=== PATIENT | female | born 1960 | race African-American/Black ===

== ENCOUNTER 2017-08-24 16:11 | Emergency (ER) | payer MEDICAID ==
[~2017-08-24] VITALS: Ht 167.6 cm; Wt 127.0 kg
--- NOTE | 2017-08-24 17:02 | Emergency Room Report ---
History of Present Illness General Chief Complaint: Dyspnea/Respdistress Source: Patient, EMS Present Illness HPI 57-year-old female, history of asthma, presenting with shortness of breath for 2 days. Shortness of breath is worse with exertion, no chest pain no palpitations. Complaining of dry cough. No fever no chills. No diarrhea no vomiting and no abdominal pain. States that she does not have an albuterol inhaler at home Allergies: Coded Allergies: METRONIDAZOLE (Verified Allergy, Unknown, 08/24/17) SULFAMETHOXAZOLE (Verified Allergy, Unknown, 08/24/17) TRIMETHOPRIM (Verified Allergy, Unknown, 08/24/17) Patient History Past Medical History: see triage record Past Surgical History: none Pertinent Family History: none Reviewed Nursing Documentation: PMH: Agreed, PSxH: Agreed Nursing Documentation-PMH Hx Hypertension: Yes Hx Asthma: Yes Review of Systems All Other Systems: negative except mentioned in HPI Physical Exam Vital Signs Date Time Temp Pulse Resp B/P (MAP) Pulse Ox O2 Delivery O2 Flow Rate FiO2 08/24/17 16:06 99.0 60 16 165/90 100 Room Air Sp02 EP Interpretation: reviewed, normal General Appearance: normal inspection, well appearing, no apparent distress, alert, GCS 15, non-toxic Head: normocephalic, atraumatic Eyes: bilateral eye normal inspection, bilateral eye PERRL, bilateral eye EOMI ENT: normal ENT inspection, normal pharynx, normal voice, moist mucus membranes Neck: normal inspection, full range of motion, supple Respiratory: normal inspection, lungs clear, normal breath sounds, no respiratory distress, no retraction, no wheezing, speaking full sentences, chest symmetrical Cardiovascular #1: normal inspection, regular rate, rhythm, no edema, normal capillary refill Cardiovascular #2: 2+ radial (R), 2+ radial (L) Gastrointestinal: normal inspection, non tender, soft, non-distended, no guarding Musculoskeletal: normal inspection, back normal, normal range of motion, non- tender Neurologic: normal inspection, alert, oriented x3, responsive, motor strength/ tone normal, sensory intact, normal gait, speech normal Psychiatric: normal inspection, judgement/insight normal, memory normal Skin: normal inspection, normal color, no rash, warm/dry, well hydrated, normal turgor Medical Decision Making Diagnostic Impression: Primary Impression: Dyspnea ER Course 57-year-old female with history of asthma p/w SOB. DDX: Asthma exacerbation, pneumonia, upper respiratory infection/viral syndrome PE is unlikely given other likely diagnoses which is more likely in this patients given clinical scenario and physical examination. Furthermore, there is no history of DVT/PE. PERC negative. No risk factors such as OCPs, prolonged immobilizations, recent surgeries, hypercoagulability. Plan: Labs EKG chest x-ray Patient not wheezing at this time, no meds needed ER Course: CXR reveals no acute infiltrate Patient continues to speak in complete sentences and is not in respiratory distress. Repeat lung auscultation: good air entry with no wheezing Vital signs normal Disposition: Patient will be discharged to home Strict precautions are discussed with patient on when to emergently return to the ED including: persistent or worsening SOB, chest pain, fever, chills, which could indicate severe illness. Patient verbalized understanding. Patient is to follow up with her/his PMD within 5 days. Patient agrees with plan. Please note that this Emergency Department Report was dictated using [employer] materials handling plant operator technology software, occasionally this can lead to erroneous entry secondary to interpretation by the dictation equipment. EKG Diagnostic Results EP Interpretation: Yes Rate: normal Rhythm: NSR ST Segments: No acute changes ASA given to patient: No Rhythm Strip EP Interpretation: Yes Rate: 70 Rhythm: NSR, no PVCs, no ectopy Chest X-ray CXR: Ordered: Yes 1 view Indication: SOB EP interpretation: Yes Interpretation: No consolidation, no effusion, no PTX, no acute cardiopulmonary disease Impression: No acute disease Electronically signed by Dom Kowalski MD Laboratory Tests Test 08/24/17 17:20 White Blood Count 10.6 K/UL (4.8-10.8) Red Blood Count 5.30 M/UL (4.20-5.40) Hemoglobin 13.7 G/DL (12.0-16.0) Hematocrit 43.4 % (37.0-47.0) Mean Corpuscular Volume 82 FL (80-99) Mean Corpuscular Hemoglobin 25.8 PG (27.0-31.0) L Mean Corpuscular Hemoglobin Concent 31.6 G/DL (32.0-36.0) L Red Cell Distribution Width 13.5 % (11.6-14.8) Platelet Count 372 K/UL (150-450) Mean Platelet Volume 7.7 FL (6.5-10.1) Neutrophils (%) (Auto) 53.2 % (45.0-75.0) Lymphocytes (%) (Auto) 38.2 % (20.0-45.0) Monocytes (%) (Auto) 6.6 % (1.0-10.0) Eosinophils (%) (Auto) 0.8 % (0.0-3.0) Basophils (%) (Auto) 1.1 % (0.0-2.0) Sodium Level 139 MMOL/L (136-145) Potassium Level 3.5 MMOL/L (3.5-5.1) Chloride Level 104 MMOL/L (98-107) Carbon Dioxide Level 28 MMOL/L (21-32) Anion Gap 7 mmol/L (5-15) Blood Urea Nitrogen 10 mg/dL (7-18) Creatinine 0.9 MG/DL (0.55-1.30) Estimate Glomerular Filtration Rate > 60 mL/min (>60) Glucose Level 83 MG/DL (74-106) Calcium Level 9.0 MG/DL (8.5-10.1) Total Bilirubin 0.2 MG/DL (0.2-1.0) Aspartate Amino Transferase (AST) 25 U/L (15-37) Alanine Aminotransferase (ALT) 20 U/L (12-78) Alkaline Phosphatase 103 U/L (46-116) Troponin I 0.000 ng/mL (0.000-0.056) Pro-B-Type Natriuretic Peptide 97 pg/mL (0-125) Total Protein 8.6 G/DL (6.4-8.2) H Albumin 2.8 G/DL (3.4-5.0) L Globulin 5.8 g/dL Albumin/Globulin Ratio 0.5 (1.0-2.7) L Last Vital Signs Date Time Temp Pulse Resp B/P (MAP) Pulse Ox O2 Delivery O2 Flow Rate FiO2 08/24/17 16:06 99.0 60 16 165/90 100 Room Air Disposition: HOME, SELF-CARE Condition: Improved Scripts Nebulizer (Compact Compressor Nebulizer) 1 Each Each [facility], #1 Prov: Retino,Clairose M.D. 08/24/17 Albuterol Sulfate* (ALBUTEROL SULFATE HHN*) 2.5 Mg/3 Ml Vial.neb 2.5 MG HHN Q4H Y for Shortness of Breath, #25 VIAL Prov: Dom Kowalski M.D. 08/24/17 Patient Instructions: Shortness of Breath, [id number] Dom Kowalski M.D. Aug 24, 2017 17:02
[2017-08-24 17:48] LABS: BASOPHILS % (AUTO) 1.1 % (0.0-2.0); EOSINOPHILS % (AUTO) 0.8 % (0.0-3.0); HEMATOCRIT 43.4 % (37.0-47.0); HEMOGLOBIN 13.7 G/DL (12.0-16.0); LYMPHOCYTES % (AUTO) 38.2 % (20.0-45.0); MEAN CORPUSCULAR VOLUME 82 FL (80-99); MONOCYTES % (AUTO) 6.6 % (1.0-10.0); NEUTROPHILS % (AUTO) 53.2 % (45.0-75.0); PLATELET COUNT 372 K/UL (150-450); RED CELL DISTRIBUTION WIDTH 13.5 % (11.6-14.8); WHITE BLOOD COUNT 10.6 K/UL (4.8-10.8)
[2017-08-24 17:59] LABS: ANION GAP 7 mmol/L (5-15); BLOOD UREA NITROGEN 10 mg/dL (7-18); CARBON DIOXIDE 28 MMOL/L (21-32); CHLORIDE 104 MMOL/L (98-107); CREATININE 0.9 MG/DL (0.55-1.30); POTASSIUM 3.5 MMOL/L (3.5-5.1); SODIUM 139 MMOL/L (136-145)
[2017-08-24 18:00] VITALS: BP 158/74
[2017-08-24 18:10] LABS: ALANINE AMINOTRANSFERASE 20 U/L (12-78); ALBUMIN 2.8 G/DL (3.4-5.0); ALBUMIN/GLOBULIN RATIO 0.5 (1.0-2.7); ALKALINE PHOSPHATASE 103 U/L (46-116); ASPARTATE AMINO TRANSFERASE 25 U/L (15-37); BILIRUBIN,TOTAL 0.2 MG/DL (0.2-1.0)
[2017-08-24 19:00] VITALS: BP 158/74
[2017-08-24] MEDS ORDERED: ALBUTEROL2.5 MG/3 M HHN (19:34)
[2017-08-24] MEDS ORDERED: COMPACT COMPRE1 EACH MC (19:34)
--- NOTE | 2017-08-25 11:27 | Diagnostic Imaging Report ---
Indication: Shortness of breath Technique: One view of the chest Comparison: none Findings: Body habitus limits evaluation. Lungs and pleural spaces are probably clear. Haziness to the bilateral lung solo probably is due to overlying soft tissue. The heart size is upper limits of normal Impression: No acute process
--- NOTE | 2017-08-25 18:21 | Cardiology Report ---
APPROVED REPORT EKG Measurement Heart [id number] Normal sinus rhythm Minimal voltage criteria for LVH, may be normal variant Nonspecific T wave abnormality Abnormal ECG
[2017-08-26] MEDS ORDERED: VITAMIN C250 MG ORAL (20:51)
[2017-08-26] MEDS ORDERED: AMLODIPINE BESYL5 MG ORAL (20:51)
[2017-08-26] MEDS ORDERED: BENAZEPRIL HCL20 MG ORAL (20:51)
[2017-08-26] MEDS ORDERED: THIOTHIXENE2 MG ORAL (20:51)
[2017-08-26] MEDS ORDERED: ASPIR 8181 MG ORAL (20:51)
== END 2017-08-24 19:00 | disposition home or self-care (01) ==
LOC: EDBD 16:11 → EMR 16:42
DX: J45.909 Unspecified asthma, uncomplicated (principal); I10 Essential (primary) hypertension; Z88.2 Allergy status to sulfonamides; Z88.1 Allergy status to other antibiotic agents
CPT/HCPCS: 36415; 71045; 80053; 83880; 84484; 85025; 93005; 99284

== ENCOUNTER 2017-08-26 20:54 | Emergency (ER) | payer MEDICAID ==
[~2017-08-26] VITALS: Ht 162.6 cm; Wt 136.1 kg
[~2017-08-26 20:54] MED LIST: ALBUTEROL2.5 MG/3 M HHN; AMLODIPINE BESYL5 MG ORAL; ASPIR 8181 MG ORAL; BENAZEPRIL HCL20 MG ORAL; COMPACT COMPRE1 EACH MC; THIOTHIXENE2 MG ORAL; VITAMIN C250 MG ORAL
[2017-08-26] MEDS ORDERED: Sodium Chloride 500ML 500 ML IV ONE (21:09)
[2017-08-26] MEDS: Ipratropium 0.02% Inh Soln 2.5ml UD HHN SCH ×3 (21:25→21:54)
[2017-08-26] MEDS: Albuterol ud Inhalation HHN SCH ×3 (21:25→21:54)
[2017-08-26] MEDS ORDERED: THIOTHIXENE 2 MG ORAL ONE ×2 (21:30→22:30)
[2017-08-26 21:52] LABS: BASOPHILS % (AUTO) 0.7 % (0.0-2.0); EOSINOPHILS % (AUTO) 0.8 % (0.0-3.0); HEMATOCRIT 43.1 % (37.0-47.0); HEMOGLOBIN 13.5 G/DL (12.0-16.0); LYMPHOCYTES % (AUTO) 34.6 % (20.0-45.0); MEAN CORPUSCULAR VOLUME 82 FL (80-99); MONOCYTES % (AUTO) 5.1 % (1.0-10.0); NEUTROPHILS % (AUTO) 58.7 % (45.0-75.0); PLATELET COUNT 370 K/UL (150-450); RED BLOOD COUNT 5.26 M/UL (4.20-5.40); RED CELL DISTRIBUTION WIDTH 13.8 % (11.6-14.8); WHITE BLOOD COUNT 12.7 K/UL (4.8-10.8)
[2017-08-26 22:09] LABS: ANION GAP 10 mmol/L (5-15); BLOOD UREA NITROGEN 13 mg/dL (7-18); CALCIUM 8.5 MG/DL (8.5-10.1); CARBON DIOXIDE 26 MMOL/L (21-32); CHLORIDE 104 MMOL/L (98-107); CREATININE 1.1 MG/DL (0.55-1.30); POTASSIUM 3.5 MMOL/L (3.5-5.1); SODIUM 140 MMOL/L (136-145)
[2017-08-26 22:23] LABS: ALANINE AMINOTRANSFERASE 23 U/L (12-78); ALBUMIN 2.8 G/DL (3.4-5.0); ALBUMIN/GLOBULIN RATIO 0.5 (1.0-2.7); ALKALINE PHOSPHATASE 101 U/L (46-116); ASPARTATE AMINO TRANSFERASE 28 U/L (15-37); BILIRUBIN,TOTAL 0.2 MG/DL (0.2-1.0); CKMB 1.9 NG/ML (0.0-3.6); CREATINE KINASE 330 U/L (26-308)
[2017-08-27] MEDS ORDERED: THIOTHIXENE5 M1 PO (00:50)
[2017-08-27] MEDS ORDERED: ALBUTEROL SULF8.5 GM INH (00:53)
[2017-08-27] MEDS ORDERED: PREDNISONE20 MG ORAL (00:53)
[2017-08-27 01:07] VITALS: BP 138/89
--- NOTE | 2017-08-27 01:33 | Emergency Room Report ---
History of Present Illness General Chief Complaint: Dyspnea/Respdistress Source: Patient Present Illness HPI 57-year-old female presents to ED for evaluation. Patient states feeling short of breath last 3 days. Patient brought in by EMS. Upon arrival patient showing no signs of distress. States she has history of asthma. Also states that she has psychiatric history and is run out of her medication thiothixene. Has not taken in several months. Denies hearing voices. Denies any suicidal or homicidal ideation. Denies cough or chest pain. No other aggravating or relieving factors. Denies any other associated symptoms Allergies: Coded Allergies: METRONIDAZOLE (Verified Allergy, Unknown, 08/24/17) SULFAMETHOXAZOLE (Verified Allergy, Unknown, 08/24/17) TRIMETHOPRIM (Verified Allergy, Unknown, 08/24/17) Patient History Past Medical History: asthma, psych hx Past Surgical History: none Pertinent Family History: none Social History: Denies: smoking, alcohol use, drug use Now: No Immunizations: UTD Reviewed Nursing Documentation: PMH: Agreed, PSxH: Agreed Nursing Documentation-PMH Past Medical History: No History, Except For Hx Hypertension: Yes - Anemia. Hx Asthma: Yes Hx Diabetes: Yes Review of Systems All Other Systems: negative except mentioned in HPI Physical Exam Vital Signs Date Time Temp Pulse Resp B/P (MAP) Pulse Ox O2 Delivery O2 Flow Rate FiO2 08/26/17 20:46 98.1 88 20 152/88 98 Room Air 08/26/17 21:20 21 Sp02 EP Interpretation: reviewed, normal General Appearance: no apparent distress, alert, GCS 15, non-toxic, obese Head: normocephalic, atraumatic Eyes: bilateral eye normal inspection, bilateral eye PERRL ENT: hearing grossly normal, normal pharynx, no angioedema, normal voice Neck: full range of motion, supple/symm/no masses Respiratory: chest non-tender, lungs clear, normal breath sounds, speaking full sentences Cardiovascular #1: regular rate, rhythm, no edema Cardiovascular #2: 2+ carotid (R), 2+ carotid (L), 2+ radial (R), 2+ radial (L) , 2+ dorsalis pedis (R), 2+ dorsalis pedis (L) Gastrointestinal: normal bowel sounds, non tender, soft, non-distended, no guarding, no rebound Rectal: deferred Genitourinary: normal inspection, no CVA tenderness Musculoskeletal: back normal, gait/station normal, normal range of motion, non- tender Neurologic: alert, oriented x3, responsive, motor strength/tone normal, sensory intact, speech normal Psychiatric: judgement/insight normal, memory normal, mood/affect normal, no suicidal/homicidal ideation Reflexes: 3+ bicep (R), 3+ bicep (L), 3+ tricep (R), 3+ tricep (L), 3+ knee (R) , 3+ knee (L) Skin: normal color, no rash, warm/dry, well hydrated Lymphatic: no adenopathy Medical Decision Making Diagnostic Impression: Primary Impression: Asthma Qualified Codes: J45.998 - Other asthma ER Course Hospital Course 57-year-old female presents ED complaining of shortness of breath Differential diagnoses include: URI, bronchitis, asthma/COPD, pneumonia Clinical course Patient placed on stretcher. After initial history, physical exam reveals a middle aged female in no acute distress. Bilateral TM unremarkable. No pharyngeal erythema. No tonsillar exudates. No lymphadenopathy. lungs clear. I ordered labs, IV fluids, EKG, CXR, nebs Labs reviewed-no leukocytosis noted, hemoglobin/hematocrit stable, electrolytes okay, d-dimer elevated EKG - NSR, no acute ischemic changes interpreted by me Chest x-ray bilateral effusion Patient states she does feel better with the breathing treatment however I did not detect wheezing. Given elevated d-dimer I am concerned for PE CTA shows no evidence of PE patient given thiothixine in ED. reassurance given. Diagnosis - asthma Stable and discharged home with prescriptions for albtuerol, prednisone, thiothixene. Instructed to followup with PMD. Return to ED if symptoms recur or worsen Labs Test 08/26/17 21:37 White Blood Count 12.7 K/UL (4.8-10.8) Red Blood Count 5.26 M/UL (4.20-5.40) Hemoglobin 13.5 G/DL (12.0-16.0) Hematocrit 43.1 % (37.0-47.0) Mean Corpuscular Volume 82 FL (80-99) Mean Corpuscular Hemoglobin 25.6 PG (27.0-31.0) Mean Corpuscular Hemoglobin Concent 31.2 G/DL (32.0-36.0) Red Cell Distribution Width 13.8 % (11.6-14.8) Platelet Count 370 K/UL (150-450) Mean Platelet Volume 7.4 FL (6.5-10.1) Neutrophils (%) (Auto) 58.7 % (45.0-75.0) Lymphocytes (%) (Auto) 34.6 % (20.0-45.0) Monocytes (%) (Auto) 5.1 % (1.0-10.0) Eosinophils (%) (Auto) 0.8 % (0.0-3.0) Basophils (%) (Auto) 0.7 % (0.0-2.0) D-Dimer 0.94 mg/L FEU (0.00-0.49) Sodium Level 140 MMOL/L (136-145) Potassium Level 3.5 MMOL/L (3.5-5.1) Chloride Level 104 MMOL/L (98-107) Carbon Dioxide Level 26 MMOL/L (21-32) Anion Gap 10 mmol/L (5-15) Blood Urea Nitrogen 13 mg/dL (7-18) Creatinine 1.1 MG/DL (0.55-1.30) Estimat Glomerular Filtration Rate > 60 mL/min (>60) Glucose Level 98 MG/DL (74-106) Calcium Level 8.5 MG/DL (8.5-10.1) Total Bilirubin 0.2 MG/DL (0.2-1.0) Aspartate Amino Transf (AST/SGOT) 28 U/L (15-37) Alanine Aminotransferase (ALT/SGPT) 23 U/L (12-78) Alkaline Phosphatase 101 U/L (46-116) Total Creatine Kinase 330 U/L (26-308) Creatine Kinase MB 1.9 NG/ML (0.0-3.6) Creatine Kinase MB Relative Index 0.5 Troponin I 0.001 ng/mL (0.000-0.056) Pro-B-Type Natriuretic Peptide 100 pg/mL (0-125) Total Protein 8.2 G/DL (6.4-8.2) Albumin 2.8 G/DL (3.4-5.0) Globulin 5.4 g/dL Albumin/Globulin Ratio 0.5 (1.0-2.7) EKG Diagnostic Results Rate: normal Rhythm: NSR ST Segments: no acute changes ASA given to the pt in ED: No Rhythm Strip Diag. Results EP Interpretation: yes Rhythm: NSR, no PVC's, no ectopy Chest X-Ray Diagnostic Results Chest X-Ray Diagnostic Results : Chest X-Ray Ordered: Yes # of Views/Limited/Complete: 1 View Indication: Shortness of Breath EP Interpretation: Yes Interpretation: no consolidation, no pneumothorax, other - bilateral effusion Impression: Other - bilateral effusion Electronically Signed by: Electronically signed by Keshawn Schulz MD CT/MRI/US Diagnostic Results CT/MRI/US Diagnostic Results : Imaging Test Ordered: CTA CHest Impression bilateral atelectasis. no PE Last Vital Signs Date Time Temp Pulse Resp B/P (MAP) Pulse Ox O2 Delivery O2 Flow Rate FiO2 08/27/17 01:09 98.1 69 22 138/89 100 Room Air 21 Status: improved Disposition: HOME, SELF-CARE Condition: Stable Scripts Prednisone* (PREDNISONE*) 20 Mg Tablet 40 MG ORAL DAILY, #10 TAB Prov: KESHAWN SCHULZ M.D. 08/27/17 Albuterol Sulfate* (ALBUTEROL SULFATE MDI*) 8.5 Gm Hfa.aer.ad 2 PUFF INH Q6H, #1 EA 0 Refills Prov: KESHAWN SCHULZ M.D. 08/27/17 Thiothixene (THIOTHIXENE) 5 Mg Capsule 5 MG PO BID for 30 Days, CAP Prov: KESHAWN SCHULZ M.D. 08/27/17 Referrals: [facility],REFERRING (PCP) Patient Instructions: Asthma Attack Prevention KESHAWN SCHULZ M.D. Aug 27, 2017 01:32
--- NOTE | 2017-08-27 12:02 | Diagnostic Imaging Report ---
Indication: Shortness of breath Technique: One view of the chest Comparison: To 11/07/2017 Findings: Body habitus limits evaluation. Lungs and pleural spaces are clear. Heart size is normal. No significant interim change Impression: No acute process
--- NOTE | 2017-08-27 12:14 | Diagnostic Imaging Report ---
ndication: Shortness of breath Technique: IV administration nonionic contrast. Spiral acquisitions obtained from the lung bases to the lung apices. Multiplanar and 3-D reconstructions were generated. Total dose length product 1193.5 mGycm. CTDIvol(s) 41.83 mGy. Dose reduction achieved using automated exposure control Comparison: none Findings: There is somewhat suboptimal pulmonary arterial opacification, limiting visualization of the distal vessels. No gross intraluminal filling defects or other findings to suggest acute pulmonary embolus demonstrated. Normal caliber pulmonary arteries. Normal heart size. No right ventricular dilatation. No evidence of thoracic aortic aneurysm or dissection. There are a few small bullae. Some scarring is seen in the posterior medial right lower lobe. The lungs and pleural spaces are otherwise clear. The heart is normal in size. No pericardial effusion. No mediastinal or hilar mass or adenopathy. Numerous thyroid nodules are demonstrated. No axillary or chest wall mass or adenopathy. The included upper abdominal anatomy is unremarkable Impression: No definite evidence of acute pulmonary embolus COPD changes No acute pulmonary process Enlarged thyroid with multiple nodules, may be a multinodular goiter. This agrees with the preliminary interpretation provided overnight by [facility] teleradiology service. The CT scanner at [facility] is accredited by the [employer] and the scans are performed using protocols designed to limit radiation exposure to as low as reasonably achievable to attain images of sufficient resolution adequate for diagnostic evaluation.
--- NOTE | 2017-08-27 17:12 | Cardiology Report ---
APPROVED REPORT EKG Measurement Heart [id number] [place] [id number] Normal sinus rhythm Nonspecific T wave abnormality Abnormal ECG
== END 2017-08-27 02:11 | disposition home or self-care (01) ==
LOC: EDBD 20:54 → EMR 21:09
DX: J45.909 Unspecified asthma, uncomplicated (principal); E11.9 Type 2 diabetes mellitus without complications; I10 Essential (primary) hypertension; Z88.2 Allergy status to sulfonamides; Z88.8 Allergy status to other drugs, medicaments and biological substances
CPT/HCPCS: 36415; 71045; 71275; 80053; 82550; 82553; 83880; 84484; 85025; 85379; 93005; 94640; 96360; 99284; J7040; Q9967

== ENCOUNTER 2018-07-29 00:34 | Emergency (ER) | payer MEDICAID ==
[~2018-07-29] VITALS: Ht 167.6 cm; Wt 122.5 kg
[~2018-07-29 00:34] MED LIST changes: +ALBUTEROL SULF8.5 GM INH; +GUAIFENESIN DM118 M1 ORAL; +PREDNISONE20 MG ORAL; +THIOTHIXENE5 M1 PO
[2018-07-29] MEDS ORDERED: HYDROCHLOROTHIA25 MG ORAL (00:48)
--- NOTE | 2018-07-29 00:50 | NUR ---
ED Nurse Note: Patient AJITH RA 26 from home c/o medication refill. Patient is unable to see her PCP until this morning. Patient BP in triage is 226/98. Patient denies any medical complaints at this time. pt hooked on monitor on trauma bed, bp 158/66. denies pain. ekg done and reveal nsr. will continue to monitor.
[2018-07-29 01:03] VITALS: BP 158/66
--- NOTE | 2018-07-29 01:16 | NUR ---
ED Nurse Note: pt was cleared for discharge by kt. discharge instruction and prescption explained and pt able to verbalized understanding. pt bp 158/60. denies pain. no other complaint. id band removed. pt able to walk with steaduy gait. pt left the ed with all belongings.
[2018-07-29 01:17] VITALS: BP 158/60
[2018-07-29] MEDS ORDERED: AMLODIPINE-BEN1 EAC4 ORAL (01:19)
[2018-07-29] MEDS ORDERED: THIOTHIXENE5 M1 PO (01:19)
--- NOTE | 2018-07-29 04:23 | Emergency Room Report ---
History of Present Illness General Chief Complaint: Hypertension Source: Patient Present Illness HPI 58-year-old female presents ED for evaluation. Patient brought in by EMS. Patient states her blood pressure is high. Systolic in triage 226. Patient denies any chest pain or shortness of breath. Denies any dizziness or headache. States that she ran out of her blood pressure meds for 5 days. States she is otherwise compliant with her medication. Denies drug use. Also states she needs refill of her psych meds. Denies hearing voices. Denies SI or HI. No other aggravating relieving factors. Denies any other associated symptoms Allergies: Coded Allergies: METRONIDAZOLE (Verified Allergy, Unknown, 08/24/17) SULFAMETHOXAZOLE (Verified Allergy, Unknown, 08/24/17) TRIMETHOPRIM (Verified Allergy, Unknown, 08/24/17) Patient History Past Medical History: DM, HTN, asthma Past Surgical History: none Pertinent Family History: none Social History: Denies: smoking, alcohol use, drug use Last Menstrual Period: 07/05/18 Now: No : 2 Para: 2 Immunizations: UTD Reviewed Nursing Documentation: PMH: Agreed; PSxH: Agreed Nursing Documentation-PMH Past Medical History: No History, Except For Hx Hypertension: Yes - Anemia. Hx Asthma: Yes Hx Diabetes: Yes Review of Systems All Other Systems: negative except mentioned in HPI Physical Exam Vital Signs Date Time Temp Pulse Resp B/P (MAP) Pulse Ox O2 Delivery O2 Flow Rate FiO2 07/29/18 00:44 98.6 94 18 226/98 99 Room Air Sp02 EP Interpretation: reviewed, normal General Appearance: no apparent distress, alert, GCS 15, non-toxic, obese Head: normocephalic, atraumatic Eyes: bilateral eye normal inspection, bilateral eye PERRL ENT: hearing grossly normal, normal pharynx, no angioedema, normal voice Neck: full range of motion, supple/symm/no masses Respiratory: chest non-tender, lungs clear, normal breath sounds, speaking full sentences Cardiovascular #1: regular rate, rhythm, no edema Cardiovascular #2: 2+ carotid (R), 2+ carotid (L), 2+ radial (R), 2+ radial (L) , 2+ dorsalis pedis (R), 2+ dorsalis pedis (L) Gastrointestinal: normal bowel sounds, non tender, soft, non-distended, no guarding, no rebound Rectal: deferred Genitourinary: normal inspection, no CVA tenderness Musculoskeletal: back normal, gait/station normal, normal range of motion, non- tender Neurologic: alert, oriented x3, responsive, motor strength/tone normal, sensory intact, speech normal Psychiatric: judgement/insight normal, memory normal, mood/affect normal, no suicidal/homicidal ideation Reflexes: 3+ bicep (R), 3+ bicep (L), 3+ tricep (R), 3+ tricep (L), 3+ knee (R) , 3+ knee (L) Skin: normal color, no rash, warm/dry, well hydrated Lymphatic: no adenopathy Medical Decision Making Diagnostic Impression: Primary Impression: Hypertension Qualified Codes: I10 - Essential (primary) hypertension ER Course Hospital Course 58-year-old female presents ED complaining of elevated BP Differential diagnoses include: hypertensive urgency, hypertensive emergency, arrythmia, AZ/ACS Clinical course Patient placed on stretcher. After initial history and physical I ordered EKG EKG - NSR Repeat blood pressure 158/66. Patient is asymptomatic. I do not believe workup is required at this time. Patient will be provide refills of her medications. Patient states she will follow-up with her PMD next week I. I feel this is a highly complex case requiring extensive working including EKG/Rhythm strip, Xray/CT/US, Blood/urine lab work, repeat exams while in ED, and administration of strong opiates/narcotics for pain control, admission to hospital or close patient follow up. Diagnosis - hypertension Stable and discharged to home with Rx Amlodipine/Benazepril, thiothixine. Instructed to followup with PMD. Return to ED if symptoms recur or worsen EKG Diagnostic Results Rate: normal Rhythm: NSR ST Segments: no acute changes ASA given to the pt in ED: No Rhythm Strip Diag. Results EP Interpretation: yes Rhythm: NSR, no PVC's, no ectopy Last Vital Signs Date Time Temp Pulse Resp B/P (MAP) Pulse Ox O2 Delivery O2 Flow Rate FiO2 07/29/18 01:17 98.0 82 20 158/60 99 Room Air Status: improved Disposition: HOME, SELF-CARE Condition: Stable Scripts Amlodipine Besylate/Benazepril 5-20 Mg* (AMLODIPINE-BENAZEPRIL 5-20 MG*) 1 Each Capsule 1 CAP ORAL DAILY, #30 CAP Prov: Keshawn Schulz MD 07/29/18 Thiothixene (THIOTHIXENE) 5 Mg Capsule 5 MG PO BID for 30 Days, CAP Prov: Keshawn Schulz MD 07/29/18 Referrals: [facility],REFERRING (PCP) Patient Instructions: Hypertension, [id number] Keshawn Schulz MD Jul 29, 2018 04:22
--- NOTE | 2018-07-29 16:00 | Cardiology Report ---
APPROVED REPORT EKG Measurement Heart [id number] [place] 136P63 [id number] Normal sinus rhythm Minimal voltage criteria for LVH, may be normal variant Nonspecific T wave abnormality Abnormal ECG
== END 2018-07-29 01:16 | disposition home or self-care (01) ==
LOC: EDBD 00:34 → EDUNIT# 00:34 → EMR 01:12
DX: I10 Essential (primary) hypertension (principal); E11.9 Type 2 diabetes mellitus without complications; J45.909 Unspecified asthma, uncomplicated; Z88.2 Allergy status to sulfonamides; Z88.1 Allergy status to other antibiotic agents
CPT/HCPCS: 93005; 99283

== ENCOUNTER 2018-10-10 23:03 | Emergency (ER) | payer MEDICAID ==
[~2018-10-10] VITALS: Ht 167.6 cm; Wt 129.3 kg
[~2018-10-10 23:03] MED LIST changes: +AMLODIPINE-BEN1 EAC4 ORAL; +HYDROCHLOROTHIA25 MG ORAL
[2018-10-10 23:10] VITALS: BP 176/88
--- NOTE | 2018-10-10 23:10 | NUR ---
ER Nurse Note: Pt BIBA from home c/o cehst pain and shortness of breath since 10/07. Pt rates her pain at a 7/10, non radiating. Pt stated she gets these symptoms when she is out of medication. Pt a&ox4, VSS, no signs of distress, no fever, on room air. Lung sounds heard in all lobes. ERMD at pt side; will continue to monitor.
[2018-10-11] MEDS ORDERED: THIOTHIXENE5 M1 PO (00:37)
--- NOTE | 2018-10-11 00:37 | Emergency Room Report ---
History of Present Illness General Chief Complaint: Chest Pain Source: Patient, Medical Record Present Illness HPI Is a 58-year-old female with a psychiatric history and high blood pressure. She presents with chief complaint of chest pain shows of breath. She said his been ongoing for last 4 days. Reason for this because she is out of her Navane. She said she get this when she ran out of her medication. Denies any fever chills but denies any exertional component. Denies any diaphoresis. Pain is 7 out of 10. Similar symptoms in the past. Allergies: Coded Allergies: METRONIDAZOLE (Verified Allergy, Unknown, 08/24/17) SULFAMETHOXAZOLE (Verified Allergy, Unknown, 08/24/17) TRIMETHOPRIM (Verified Allergy, Unknown, 08/24/17) Patient History Past Medical History: see triage record, old chart reviewed, HTN, psych hx Past Surgical History: other Pertinent Family History: none Social History: Denies: smoking Now: No Immunizations: other Reviewed Nursing Documentation: PMH: Agreed; PSxH: Agreed Nursing Documentation-PMH Hx Hypertension: Yes - Anemia. Hx Asthma: Yes Hx Diabetes: Yes History Of Psychiatric Problem: Yes - schizo, bipolar Review of Systems Eye: Denies: eye pain, blurred vision ENT: Denies: ear pain, nose congestion, throat swelling Respiratory: Denies: cough, shortness of breath Cardiovascular: Reports: chest pain; Denies: palpitations Gastrointestinal: Denies: abdominal pain, diarrhea, nausea, vomiting Musculoskeletal: Denies: back pain, joint pain Skin: Denies: rash Neurological: Denies: headache, numbness Endocrine: Denies: increased thirst, increased urine Hematologic/Lymphatic: Denies: easy bruising All Other Systems: negative except mentioned in HPI Physical Exam Vital Signs Date Time Temp Pulse Resp B/P (MAP) Pulse Ox O2 Delivery O2 Flow Rate FiO2 10/10/18 23:03 98.6 84 16 176/88 100 Room Air vitals with high blood pressure Sp02 EP Interpretation: reviewed, normal General Appearance: well appearing, no apparent distress, alert, obese Head: normocephalic, atraumatic Eyes: bilateral eye PERRL, bilateral eye EOMI ENT: hearing grossly normal, normal pharynx Neck: full range of motion, supple, no meningismus Respiratory: chest non-tender, lungs clear, normal breath sounds Cardiovascular #1: regular rate, rhythm, no murmur Gastrointestinal: normal bowel sounds, non tender, no mass, no organomegaly, no bruit, non-distended Musculoskeletal: back normal, gait/station normal, normal range of motion Psychiatric: mood/affect normal Skin: warm/dry Medical Decision Making Diagnostic Impression: Primary Impression: Chest pain Qualified Codes: R07.9 - Chest pain, unspecified Additional Impressions: Hypertension Qualified Codes: I10 - Essential (primary) hypertension Medication refill ER Course Patient with atypical chest pain. Pain been constant for 4 days. EKG normal. And troponin negative. No evidence of ACS, PE, dissection. We'll discharge home with refill on medication. Lab Results Impression troponin negative EKG Diagnostic Results Rate: normal Rhythm: NSR ST Segments: no acute changes Rhythm Strip Diag. Results EP Interpretation: yes Rate: 77 Rhythm: NSR, no PVC's, no ectopy Last Vital Signs Date Time Temp Pulse Resp B/P (MAP) Pulse Ox O2 Delivery O2 Flow Rate FiO2 10/10/18 23:03 98.6 84 16 176/88 100 Room Air Status: improved Disposition: HOME, SELF-CARE Condition: Stable Scripts Thiothixene (THIOTHIXENE) 5 Mg Capsule 5 MG PO BID, #60 CAP Prov: Memo Harp MD 10/11/18 Patient Instructions: Nonspecific Chest Pain Additional Instructions: Follow-up with your doctor in 7 days. Return if worse. Memo Harp MD Oct 11, 2018 00:37
[2018-10-11 01:00] VITALS: BP 150/76
--- NOTE | 2018-10-11 01:00 | NUR ---
ER Nurse Note: Pt seen, treated, medically cleared for discharge discharge by ERMD. Discharge instructions and prescriptions given with repeat verbalization by pt. Instructed pt to follow up with primary care physian within one week. Pt a&ox4, VSS, no signs of distress. Pt denies chest pain and shortness of breath; O2 at 100% room air with lung sounds clear. Pt stated her chest pain and shortness of breath occur when she is off her antipsych meds. Pt left with all belongings, with stable gait; left via own transportation.
--- NOTE | 2018-10-13 19:14 | Cardiology Report ---
APPROVED REPORT EKG Measurement Heart [id number] Normal sinus rhythm Nonspecific T wave abnormality Abnormal ECG
== END 2018-10-11 01:00 | disposition home or self-care (01) ==
LOC: EDBD 23:03 → EMR 23:26
DX: R07.9 Chest pain, unspecified (principal); I10 Essential (primary) hypertension; Z76.0 Encounter for issue of repeat prescription; E11.9 Type 2 diabetes mellitus without complications; J45.909 Unspecified asthma, uncomplicated; Z88.1 Allergy status to other antibiotic agents; Z88.2 Allergy status to sulfonamides
CPT/HCPCS: 84484; 93005; 99283

== ENCOUNTER 2018-12-21 11:17 | Emergency (ER) | payer MEDICAID ==
[~2018-12-21] VITALS: Ht 162.6 cm; Wt 90.7 kg
[2018-12-21 11:21] VITALS: BP 196/94
--- NOTE | 2018-12-21 11:22 | NUR ---
ED Nurse Note: Patient biba from home c/o medication refill, patient reports of no pain at this time, the 3 meds that she wishes to refill is amlodipine 5mg, 81mg aspirin, and thiothixene 5mg. patient is alert and oriented x4, ambulatory with a steady gait.
[2018-12-21] MEDS ORDERED: ASPIRIN81 MG ORAL (11:36)
[2018-12-21] MEDS ORDERED: AMLODIPINE-BEN1 EAC4 ORAL (11:36)
[2018-12-21] MEDS ORDERED: THIOTHIXENE5 M1 PO (11:36)
[2018-12-21 11:52] VITALS: BP 176/85
--- NOTE | 2018-12-21 11:52 | NUR ---
ER DISCHARGE NOTE: Patient is cleared to be discharged per ERMD, pt is aox4, on room air, with stable vital signs. pt was given dc and prescription instructions, pt was able to verbalize understanding, pt id band removed without complications. pt is able to ambulate with steady gait. pt took all belongings. Patient was given a referreal for a PCP.
--- NOTE | 2018-12-21 14:14 | Emergency Room Report ---
History of Present Illness General Chief Complaint: Medication Refill Source: EMS Present Illness HPI . 58-year-old female presents ED for evaluation. Patient brought in by EMS. States that she needs a refill of her medications. States she needs a refill of her blood pressure meds her aspirin, benazepril/amlodipine and her thiothixene. patient states she feels fine. Denies SI or HI. Denies chest pain or shortness of breath. Rating relieving factors. Denies any other associated symptoms Allergies: Coded Allergies: METRONIDAZOLE (Verified Allergy, Unknown, 08/24/17) SULFAMETHOXAZOLE (Verified Allergy, Unknown, 08/24/17) TRIMETHOPRIM (Verified Allergy, Unknown, 08/24/17) Patient History Past Medical History: HTN, asthma, CVA/TIA, psych hx Past Surgical History: none Pertinent Family History: none Social History: Denies: smoking, alcohol use, drug use Now: No Immunizations: UTD Reviewed Nursing Documentation: PMH: Agreed; PSxH: Agreed Nursing Documentation-PMH Past Medical History: No History, Except For Hx Cardiac Problems: Yes Hx Hypertension: Yes Hx Asthma: Yes Hx Diabetes: Yes History Of Psychiatric Problem: Yes Hx Cerebrovascular Accident: Yes Review of Systems All Other Systems: negative except mentioned in HPI Physical Exam Vital Signs Date Time Temp Pulse Resp B/P (MAP) Pulse Ox O2 Delivery O2 Flow Rate FiO2 12/21/18 11:12 98.1 98 16 196/94 (128) 99 Room Air Sp02 EP Interpretation: reviewed, normal General Appearance: no apparent distress, alert, GCS 15, non-toxic Head: normocephalic, atraumatic Eyes: bilateral eye normal inspection, bilateral eye PERRL ENT: hearing grossly normal, normal pharynx, no angioedema, normal voice Neck: full range of motion, supple/symm/no masses Respiratory: chest non-tender, lungs clear, normal breath sounds, speaking full sentences Cardiovascular #1: regular rate, rhythm, no edema Cardiovascular #2: 2+ carotid (R), 2+ carotid (L), 2+ radial (R), 2+ radial (L) , 2+ dorsalis pedis (R), 2+ dorsalis pedis (L) Gastrointestinal: normal bowel sounds, non tender, soft, non-distended, no guarding, no rebound Rectal: deferred Genitourinary: normal inspection, no CVA tenderness Musculoskeletal: back normal, gait/station normal, normal range of motion, non- tender Neurologic: alert, oriented x3, responsive, motor strength/tone normal, sensory intact, speech normal Psychiatric: judgement/insight normal, memory normal, mood/affect normal, no suicidal/homicidal ideation Reflexes: 3+ bicep (R), 3+ bicep (L), 3+ tricep (R), 3+ tricep (L), 3+ knee (R) , 3+ knee (L) Skin: normal color, no rash, warm/dry, well hydrated Lymphatic: no adenopathy Medical Decision Making Diagnostic Impression: Primary Impression: Encounter for medication refill ER Course 58-year-old female presents to ED refill of her medications hospital course: After initial history and physical, she produces pill bottle which documents amlodipine/benazepril, thiothixene and aspirin being prescribed her. Given that , I tell patient I will write her for a one-week prescription of medications. I will also provide her with PMD referral so that she can be seen on a regular basis for medication refills Diagnosis-encounter for medication refill Stable and discharged to home with prescription for thiothixene, aspirin, amlodipine/benazepril. Followup with PMD. Return to ED if symptoms recur or worsen Last Vital Signs Date Time Temp Pulse Resp B/P (MAP) Pulse Ox O2 Delivery O2 Flow Rate FiO2 12/21/18 11:52 98.1 87 16 176/85 99 Room Air Status: improved Disposition: HOME, SELF-CARE Condition: Stable Scripts Amlodipine Besylate/Benazepril 5-20 Mg* (AMLODIPINE-BENAZEPRIL 5-20 MG*) 1 Each Capsule 1 CAP ORAL DAILY for 7 Days, CAP Prov: Keshawn Schulz MD 12/21/18 Aspirin* (ASPIRIN*) 81 Mg Tab.chew 81 MG ORAL DAILY for 7 Days, TAB Prov: Keshawn Schulz MD 12/21/18 Thiothixene (THIOTHIXENE) 5 Mg Capsule 5 MG PO BID for 7 Days, CAP Prov: Keshawn Schulz MD 12/21/18 Referrals: [facility] Patient Instructions: Medicine Refill at the Emergency Department Keshawn Schulz MD Dec 21, 2018 14:14
== END 2018-12-21 11:40 | disposition home or self-care (01) ==
LOC: EDBD 11:17 → EMR 11:20
DX: Z88.2 Allergy status to sulfonamides (principal); Z88.8 Allergy status to other drugs, medicaments and biological substances; I10 Essential (primary) hypertension; E11.9 Type 2 diabetes mellitus without complications; Z86.73 Personal history of transient ischemic attack (TIA), and cerebral infarction without residual deficits
CPT/HCPCS: 99282

== ENCOUNTER 2019-02-19 21:46 | Emergency (ER) | payer MEDICAID ==
[~2019-02-19] VITALS: Ht 167.6 cm; Wt 124.7 kg
[~2019-02-19 21:46] MED LIST changes: +ASPIRIN81 MG ORAL
--- NOTE | 2019-02-19 21:46 | NUR ---
ED Nurse Note: Patient biba RA 26 from home c/o SOB for the past 2 days, o2 sat at 96% ao4. nad. vss.
--- NOTE | 2019-02-19 21:57 | Emergency Room Report ---
History of Present Illness General Chief Complaint: Upper Respiratory Illness Source: Patient Present Illness HPI HPI: 50-year-old female with history of hypertension, hyperlipidemia, asthma, bipolar disorder, schizophrenia presents for evaluation of cough and 2 days shortness of breath. Cough has been persistent for some time and she notes a white sputum without fevers, no chest pain, no abdominal pain, denies vomiting, denies rash. She has not been using her inhaler thinking that is not related to asthma. She is requesting antibiotics. She is also requesting a urinalysis stating that her urine has been dark but denies any dysuria, hematuria or vaginal discharge. PMH: Hypertension, hyperlipidemia, asthma, bipolar disorder, schizophrenia PSH: Appendectomy, right hand surgery Allergies: Flagyl, Bactrim Social Hx: Uses tobacco, denies alcohol or drug use Allergies: Coded Allergies: METRONIDAZOLE (Verified Allergy, Unknown, 08/24/17) SULFAMETHOXAZOLE (Verified Allergy, Unknown, 08/24/17) TRIMETHOPRIM (Verified Allergy, Unknown, 08/24/17) Patient History Last Menstrual Period: n/a Nursing Documentation-PM Past Medical History: No History, Except For Hx Cardiac Problems: Yes Hx Hypertension: Yes Hx Asthma: Yes Hx Diabetes: Yes Hx Cerebrovascular Accident: Yes Review of Systems All Other Systems: negative except mentioned in HPI Physical Exam Vital Signs Date Time Temp Pulse Resp B/P (MAP) Pulse Ox O2 Delivery O2 Flow Rate FiO2 02/19/19 21:40 98.4 83 18 153/80 (104) 96 Room Air General: Awake and alert, no acute distress HEENT: NC/AT. EOMI. Neck: Supple, trachea midline Chest Wall: No tenderness, no deformity Cardiovascular: RRR. S1 and S2 normal. No murmur appreciated Resp: Normal work of breathing. No cough, wheezing or crackles appreciated Abdomen: Abdomen is soft, obese, nondistended. Nontender Skin: Intact. No abrasions, laceration or rash over the exposed skin MSK: Normal tone and bulk. Moving all extremities. No obvious deformity. Neuro: Awake and alert. Mentating appropriately. Medical Decision Making Diagnostic Impression: Primary Impression: UTI (urinary tract infection) Additional Impression: Upper respiratory infection ER Course 50-year-old female presents for evaluation of shortness of breath/URI symptoms as well as dark-colored urine. Differential includes was not limited to bronchitis, unspecified URI, pneumonia, UTI, pyelonephritis, allergies. Will evaluate with basic labs including urinalysis, chest x-ray. She is in no respiratory distress, I hear no wheezing and does not require any breathing treatments at this time. Will reevaluate frequently. Reevaluation Time: 23:27 Last Vital Signs Date Time Temp Pulse Resp B/P (MAP) Pulse Ox O2 Delivery O2 Flow Rate FiO2 02/19/19 21:40 98.4 83 18 153/80 (104) 96 Room Air Reevaluation Impression Labs show a slight increase in white count 11.9 but no shift, chemistry largely unremarkable. Urinalysis did suggest an acute urinary tract infection with many bacteria, white cells, 1+ leukocyte esterase. The patient was given a dose of ceftriaxone prior to departure and sent home on Keflex. She was referred to nearby primary care clinics for follow-up. She already has an appointment with her psychiatrist in 2 weeks. I encouraged her to keep that appointment. We discussed reasons to return to the emergency department. She understands and agrees with this treatment plan was discharged home. Please note that this report is being documented using [employer] technology. This can lead to erroneous entry secondary to incorrect interpretation by the dictating instrument. Disposition: HOME, SELF-CARE Condition: Stable Scripts Cephalexin* (KEFLEX*) 500 Mg Capsule 500 MG ORAL EVERY 12 HOURS, #14 CAP 0 Refills Prov: Mateo Demarco MD 02/19/19 Mateo Demarco MD Feb 19, 2019 21:57
--- NOTE | 2019-02-19 22:00 | NUR ---
ED Nurse Note: iv access established. blood and urine collected; sent down to lab.
[2019-02-19 22:32] LABS: BASOPHILS % (AUTO) 0.9 % (0.0-2.0); EOSINOPHILS % (AUTO) 2.6 % (0.0-3.0); HEMATOCRIT 41.8 % (37.0-47.0); HEMOGLOBIN 13.2 G/DL (12.0-16.0); LYMPHOCYTES % (AUTO) 35.4 % (20.0-45.0); MEAN CORPUSCULAR VOLUME 80 FL (80-99); MONOCYTES % (AUTO) 5.7 % (1.0-10.0); NEUTROPHILS % (AUTO) 55.3 % (45.0-75.0); PLATELET COUNT 376 K/UL (150-450); RED BLOOD COUNT 5.19 M/UL (4.20-5.40); RED CELL DISTRIBUTION WIDTH 13.4 % (11.6-14.8); WHITE BLOOD COUNT 11.9 K/UL (4.8-10.8)
[2019-02-19 22:34] LABS: APPEARANCE,URINE SLIGHTLY CLOUDY; BILIRUBIN, URINE NEGATIVE (NEGATIVE); GLUCOSE, URINE (UA) NEGATIVE (NEGATIVE); KETONES,URINE NEGATIVE (NEGATIVE); LEUKOCYTE ESTERASE ,URINE 1+ (NEGATIVE); NITRITE,URINE NEGATIVE (NEGATIVE); PH,URINE 7 (4.5-8.0); PROTEIN,URINE 1+ (NEGATIVE); UROBILINOGEN,URINE NORMAL MG/DL (0.0-1.0)
[2019-02-19 22:36] LABS: COLOR,URINE YELLOW
[2019-02-19 22:40] VITALS: BP 153/80
[2019-02-19 22:42] LABS: ANION GAP 4 mmol/L (5-15); BLOOD UREA NITROGEN 12 mg/dL (7-18); CALCIUM 8.7 MG/DL (8.5-10.1); CARBON DIOXIDE 31 MMOL/L (21-32); CHLORIDE 105 MMOL/L (98-107); CREATININE 0.9 MG/DL (0.55-1.30); POTASSIUM 3.7 MMOL/L (3.5-5.1); SODIUM 140 MMOL/L (136-145)
[2019-02-19 22:46] LABS: ALANINE AMINOTRANSFERASE 22 U/L (12-78); ALBUMIN 2.9 G/DL (3.4-5.0); ALBUMIN/GLOBULIN RATIO 0.5 (1.0-2.7); ALKALINE PHOSPHATASE 122 U/L (46-116); ASPARTATE AMINO TRANSFERASE 31 U/L (15-37); BILIRUBIN,TOTAL 0.3 MG/DL (0.2-1.0)
--- NOTE | 2019-02-19 22:50 | Diagnostic Imaging Report ---
EXAM: XR Chest, 2 Views CLINICAL HISTORY: COUGH TECHNIQUE: Frontal and lateral views of the chest. COMPARISON: 08/26/2017. FINDINGS: Lungs: Possible mild pulmonary vascular congestion. No focal consolidation. Pleural space: Unremarkable. No pneumothorax. Heart: Unremarkable. No cardiomegaly. Mediastinum: Unremarkable. Bones/joints: Unremarkable. IMPRESSION: Possible mild pulmonary vascular congestion. No focal consolidation.
[2019-02-19] MEDS ORDERED: CEPHALEXIN500 MG ORAL (23:26)
[2019-02-19] MEDS ORDERED: cefTRIAXone 1 GM in NS 55 ML IVPB ONE (23:30)
[2019-02-20] VITALS: BP 153/80
--- NOTE | 2019-02-20 | NUR ---
ER DISCHARGE NOTE: Patient is cleared to be discharged per ERMD, pt is aox4, on room air, with stable vital signs. pt was given dc and prescription instructions, pt was able to verbalize understanding, pt id band and iv site removed without complications. pt is able to ambulate with steady gait. pt took all belongings.
== END 2019-02-20 | disposition home or self-care (01) ==
LOC: EDBD 21:46 → EMR 22:01
DX: J06.9 Acute upper respiratory infection, unspecified (principal); N39.0 Urinary tract infection, site not specified; I10 Essential (primary) hypertension; E78.5 Hyperlipidemia, unspecified; Z88.2 Allergy status to sulfonamides; Z88.8 Allergy status to other drugs, medicaments and biological substances; E11.9 Type 2 diabetes mellitus without complications; Z86.73 Personal history of transient ischemic attack (TIA), and cerebral infarction without residual deficits; F31.9 Bipolar disorder, unspecified; F20.9 Schizophrenia, unspecified
CPT/HCPCS: 36415; 71046; 80053; 81003; 85025; 87086; 96365; 99284; J0696

== ENCOUNTER 2019-05-24 21:56 | Emergency (ER) | payer MEDICAID ==
[~2019-05-24] VITALS: Ht 167.6 cm; Wt 122.5 kg
[~2019-05-24 21:56] MED LIST changes: +CEPHALEXIN500 MG ORAL
[2019-05-24 22:00] VITALS: BP 169/99
--- NOTE | 2019-05-24 22:00 | NUR ---
ED Nurse Note: Pt brought in by ambulance from home c/o flu like symptoms x12 hrs. VSS, reports fever at home
[2019-05-24] MEDS: Ipratropium 0.02% Inh Soln 2.5ml UD HHN SCH ×3 (23:00→23:16)
[2019-05-24] MEDS: Albuterol ud Inhalation HHN SCH ×3 (23:00→23:16)
--- NOTE | 2019-05-24 23:30 | NUR ---
ED Nurse Note: Pt refusing 3rd breathing tx, RT aware, lung sounds diminished, pt states " i feel better but i feel shakey" ERMD notified
[2019-05-24] MEDS ORDERED: ALBUTEROL SULF8.5 GM INH (23:34)
[2019-05-24] MEDS ORDERED: PREDNISONE50 MG ORAL (23:34)
--- NOTE | 2019-05-24 23:34 | Emergency Room Report ---
History of Present Illness General Chief Complaint: Flu Like Symptoms Source: Patient Present Illness HPI 59-year-old female presents with cough, congestion, body aches x12 hours, no aggravating relieving factors severity is moderate, constant, patient thinks she is coming down with something, patient is stating she is short of breath, she states breathing treatments tend to help her, patient presents for evaluation. Allergies: Coded Allergies: METRONIDAZOLE (Verified Allergy, Unknown, 08/24/17) SULFAMETHOXAZOLE (Verified Allergy, Unknown, 08/24/17) TRIMETHOPRIM (Verified Allergy, Unknown, 08/24/17) Patient History Past Medical History: see triage record Last Menstrual Period: 2015 Now: No : 2 Para: 2 Reviewed Nursing Documentation: PMH: Agreed; PSxH: Agreed Nursing Documentation-PMH Hx Hypertension: Yes Hx Asthma: Yes Hx Diabetes: Yes History Of Psychiatric Problem: Yes - bipolar; schizophrenia Hx Cerebrovascular Accident: Yes Review of Systems All Other Systems: negative except mentioned in HPI Physical Exam Vital Signs Date Time Temp Pulse Resp B/P (MAP) Pulse Ox O2 Delivery O2 Flow Rate FiO2 05/24/19 21:58 99.3 104 22 169/99 (122) 98 Room Air 05/24/19 23:02 21 Sp02 EP Interpretation: reviewed, normal General Appearance: well appearing, no apparent distress, alert Head: normocephalic, atraumatic Eyes: bilateral eye PERRL, bilateral eye EOMI ENT: uvula midline, moist mucus membranes, nasal congestion Neck: supple, thyroid normal, supple/symm/no masses Respiratory: no respiratory distress, no retraction, no accessory muscle use, wheezing Cardiovascular #1: normal peripheral pulses, regular rate, rhythm, no edema, no gallop, no murmur Gastrointestinal: non tender, soft, no guarding, no rebound Musculoskeletal: normal inspection Neurologic: alert, oriented x3 Psychiatric: mood/affect normal Skin: no rash, warm/dry Medical Decision Making Diagnostic Impression: Primary Impression: Viral respiratory infection Additional Impression: Asthma Qualified Codes: J45.41 - Moderate persistent asthma with (acute) exacerbation ER Course 59-year-old female presents with URI-like symptoms, body aches, will test for flu versus pneumonia versus unspecified URI Influenza swab negative, chest x-ray shows no acute processes, patient improved with breathing treatments and steroids Will provide patient with steroids, disposition home with return precautions follow-up with PCP Chest X-Ray Diagnostic Results Chest X-Ray Diagnostic Results : Chest X-Ray Ordered: Yes # of Views/Limited/Complete: 1 View Indication: Shortness of Breath EP Interpretation: Yes Interpretation: no consolidation, no effusion, no pneumothorax, no acute cardiopulmonary disease Impression: No acute disease Electronically Signed by: My name Last Vital Signs Date Time Temp Pulse Resp B/P (MAP) Pulse Ox O2 Delivery O2 Flow Rate FiO2 05/24/19 23:12 115 20 94 Room Air 21 110 20 94 05/24/19 21:58 99.3 169/99 (122) Disposition: HOME, SELF-CARE Condition: Stable Scripts Albuterol Sulfate* (ALBUTEROL SULFATE MDI*) 8.5 Gm Hfa.aer.ad 2 PUFF INH Q4H PRN for cough/wheezing, #1 EA 0 Refills Prov: Umesh Faith MD 05/24/19 Prednisone* (PREDNISONE*) 50 Mg Tablet 50 MG ORAL DAILY, #4 TAB 0 Refills Prov: Umesh Faith MD 05/24/19 Referrals: [facility],REFERRING (PCP) [facility]. [facility] Patient Instructions: Asthma, Adult, [id number], Upper Respiratory Infection , Adult, [id number] Additional Instructions: The patient was provided with discharge instructions, notified to follow-up with a primary care doctor and or specialist in the next 24-48 hours, and to return to the ED if they have worsening of their symptoms. Please note that this report is being documented using [employer] technology. This can lead to erroneous entry secondary to incorrect interpretation by the dictating instrument. Umesh Faith MD May 24, 2019 23:34
[2019-05-24 23:40] VITALS: BP 169/99
--- NOTE | 2019-05-24 23:40 | NUR ---
ER DISCHARGE NOTE: Patient is cleared to be discharged per ERMD, pt is aox4, on room air, with stable vital signs. pt was given dc and prescription instructions, pt was able to verbalize understanding, pt id band removed. pt is able to ambulate with steady gait. pt took all belongings.
--- NOTE | 2019-05-25 12:21 | Diagnostic Imaging Report ---
Indication: Cough Technique: One view of the chest Comparison: 02/19/2019 Findings: Lungs and pleural spaces are clear. Heart size is normal. There is no significant interim change Impression: No acute process
== END 2019-05-24 23:40 | disposition home or self-care (01) ==
LOC: EDUNIT# 21:56 → EDBD 21:56 → EMR 22:14
DX: J06.9 Acute upper respiratory infection, unspecified (principal); B97.89 Other viral agents as the cause of diseases classified elsewhere; J45.41 Moderate persistent asthma with (acute) exacerbation; Z86.73 Personal history of transient ischemic attack (TIA), and cerebral infarction without residual deficits; F31.9 Bipolar disorder, unspecified; F20.9 Schizophrenia, unspecified; E11.9 Type 2 diabetes mellitus without complications; I10 Essential (primary) hypertension; Z88.8 Allergy status to other drugs, medicaments and biological substances; Z88.2 Allergy status to sulfonamides; Z88.1 Allergy status to other antibiotic agents
CPT/HCPCS: 71045; 86710; 94640; 94664; J7512; Z7502; 99284

== ENCOUNTER 2019-06-14 09:57 | Emergency (ER) | payer MEDICAID ==
[~2019-06-14] VITALS: Ht 167.6 cm; Wt 122.5 kg
[2019-06-14 09:57] VITALS: BP 206/84
[~2019-06-14 09:57] MED LIST changes: +PREDNISONE50 MG ORAL
--- NOTE | 2019-06-14 09:57 | NUR ---
ED Nurse Note: Patient arrived with RA 29 d/t SOB X 1 DAY. PT DENIES CHEST PAIN, NO AUDBILE WHEEZES, BILATERAL LUNGS SOUNDS CLEAR. 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 IV LINE ESTABLISHED, PATENT AND INTACT. Addendum: 06/14/19 at 1031 by PAT ED Nurse Note: Patient arrived with RA 29 d/t SOB X 1 DAY. PT STATES HAVING CHEST PAIN, NO AUDBILE WHEEZES, BILATERAL LUNGS SOUNDS CLEAR. 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 IV LINE ESTABLISHED, PATENT AND INTACT.
--- NOTE | 2019-06-14 09:58 | NUR ---
ED Nurse Note: PT REPORTS COUGHING "ALOT" SINCE LAST NIGHT
[2019-06-14] MEDS ORDERED: LOTREL1 CAP PO (09:59)
--- NOTE | 2019-06-14 09:59 | Emergency Room Report ---
History of Present Illness General Chief Complaint: Chest Pain Source: Patient Present Illness HPI 59-year-old female history of hypertension, hyperlipidemia, bipolar disorder presents to the emergency room because of running out of her medications states she wants a refill on her psychiatric meds, and her blood pressure meds, and then as an aside she states she is also been having chest pains for 1 full day, no aggravating relieving factors severity is mild, she states she cannot get a good breath in and her P is also turning orange she denies any dyspnea on exertion, she does endorse some shortness of breath, she states she feels a tingling sensation in her chest that comes and goes patient presents for evaluation, no family history of cardiac disease she does also smoke Allergies: Coded Allergies: METRONIDAZOLE (Verified Allergy, Unknown, 08/24/17) SULFAMETHOXAZOLE (Verified Allergy, Unknown, 08/24/17) TRIMETHOPRIM (Verified Allergy, Unknown, 08/24/17) Patient History Past Medical History: see triage record Social History: Reports: smoking Reviewed Nursing Documentation: PMH: Agreed; PSxH: Agreed Nursing Documentation-PMH Hx Hypertension: Yes Hx Asthma: Yes Hx Diabetes: Yes History Of Psychiatric Problem: Yes - bipolar Hx Cerebrovascular Accident: Yes Review of Systems All Other Systems: negative except mentioned in HPI Physical Exam Vital Signs Date Time Temp Pulse Resp B/P (MAP) Pulse Ox O2 Delivery O2 Flow Rate FiO2 06/14/19 09:51 98.4 86 16 206/84 (124) 99 Room Air Sp02 EP Interpretation: reviewed, normal General Appearance: well appearing, no apparent distress, alert Head: normocephalic, atraumatic Eyes: bilateral eye PERRL, bilateral eye EOMI ENT: uvula midline, moist mucus membranes Neck: supple, thyroid normal, supple/symm/no masses Respiratory: lungs clear, no respiratory distress, no retraction, no accessory muscle use Cardiovascular #1: normal peripheral pulses, regular rate, rhythm, no edema, no gallop, no murmur Gastrointestinal: non tender, soft, no guarding, no rebound Musculoskeletal: normal inspection Neurologic: alert, oriented x3 Psychiatric: mood/affect normal Skin: no rash, warm/dry Medical Decision Making Diagnostic Impression: Primary Impression: Chest pain Qualified Codes: R07.9 - Chest pain, unspecified ER Course 59-year-old female presents with atypical chest pain possible ACS versus pneumonia versus atypical chest pain, patient also requesting med refill Patient in no acute distress, labs negative, troponin negative Counseled patient to follow-up with PCP for outpatient evaluation Disposition home with return precautions Laboratory Tests Test 06/14/19 10:17 White Blood Count 10.5 K/UL (4.8-10.8) Red Blood Count 5.35 M/UL (4.20-5.40) Hemoglobin 13.3 G/DL (12.0-16.0) Hematocrit 43.2 % (37.0-47.0) Mean Corpuscular Volume 81 FL (80-99) Mean Corpuscular Hemoglobin 24.8 PG (27.0-31.0) L Mean Corpuscular Hemoglobin Concent 30.7 G/DL (32.0-36.0) L Red Cell Distribution Width 13.9 % (11.6-14.8) Platelet Count 348 K/UL (150-450) Mean Platelet Volume 7.0 FL (6.5-10.1) Neutrophils (%) (Auto) 55.7 % (45.0-75.0) Lymphocytes (%) (Auto) 35.1 % (20.0-45.0) Monocytes (%) (Auto) 5.6 % (1.0-10.0) Eosinophils (%) (Auto) 2.6 % (0.0-3.0) Basophils (%) (Auto) 1.0 % (0.0-2.0) Sodium Level 143 MMOL/L (136-145) Potassium Level 3.8 MMOL/L (3.5-5.1) Chloride Level 107 MMOL/L (98-107) Carbon Dioxide Level 27 MMOL/L (21-32) Anion Gap 9 mmol/L (5-15) Blood Urea Nitrogen 13 mg/dL (7-18) Creatinine 0.8 MG/DL (0.55-1.30) Estimate Glomerular Filtration Rate > 60 mL/min (>60) Glucose Level 115 MG/DL (74-106) H Calcium Level 8.2 MG/DL (8.5-10.1) L Total Bilirubin 0.3 MG/DL (0.2-1.0) Aspartate Amino Transferase (AST) 27 U/L (15-37) Alanine Aminotransferase (ALT) 26 U/L (12-78) Alkaline Phosphatase 121 U/L (46-116) H Troponin I 0.000 ng/mL (0.000-0.056) Pro-B-Type Natriuretic Peptide 24 pg/mL (0-125) Total Protein 8.4 G/DL (6.4-8.2) H Albumin 2.9 G/DL (3.4-5.0) L Globulin 5.5 g/dL Albumin/Globulin Ratio 0.5 (1.0-2.7) L Urine Opiates Screen Negative (NEGATIVE) Urine Barbiturates Screen Negative (NEGATIVE) Phencyclidine (PCP) Screen Negative (NEGATIVE) Urine Amphetamines Screen Negative (NEGATIVE) Urine Benzodiazepines Screen Negative (NEGATIVE) Urine Cocaine Screen Negative (NEGATIVE) Urine Marijuana (THC) Screen Negative (NEGATIVE) EKG Diagnostic Results EKG Time: 10:04 EP Interpretation: NSR rate 90 qtc 435, no acute st elevations, normal axis Chest X-Ray Diagnostic Results Chest X-Ray Diagnostic Results : Chest X-Ray Ordered: Yes # of Views/Limited/Complete: 1 View Indication: Chest Pain EP Interpretation: Yes Interpretation: no consolidation, no effusion, no pneumothorax, no acute cardiopulmonary disease Impression: No acute disease Electronically Signed by: Umesh Faith MD Last Vital Signs Date Time Temp Pulse Resp B/P (MAP) Pulse Ox O2 Delivery O2 Flow Rate FiO2 06/14/19 09:51 98.4 86 16 206/84 (124) 99 Room Air Disposition: HOME, SELF-CARE Condition: Stable Scripts Thiothixene (THIOTHIXENE) 5 Mg Capsule 5 MG PO QPM, #30 CAP Prov: Umesh Faith MD 06/14/19 Amlodipine Besylate/Benazepril 5-20 Mg (LOTREL 5-20 MG CAPSULE*) 1 Each Capsule 1 CAP ORAL DAILY, #30 CAP Prov: Umesh Faith MD 06/14/19 Aspirin* (ASPIR 81*) 81 Mg Tablet. 81 MG ORAL DAILY, #30 TAB Prov: Umesh Faith MD 06/14/19 Referrals: [facility] Patient Instructions: Nonspecific Chest Pain Additional Instructions: The patient was provided with discharge instructions, notified to follow-up with a primary care doctor and or specialist in the next 24-48 hours, and to return to the ED if they have worsening of their symptoms. Please note that this report is being documented using DRAGON technology. This can lead to erroneous entry secondary to incorrect interpretation by the dictating instrument. Umesh Faith MD Jun 14, 2019 09:59
[2019-06-14] MEDS ORDERED: Dicyclomine HCl 10mg/5ml oral soln ORAL ONE (10:00)
[2019-06-14] MEDS ORDERED: Lidocaine 2% Visc 15ml soln ORAL ONE (10:00)
[2019-06-14] MEDS ORDERED: Mylanta II UD 30ml ORAL ONE (10:00)
[2019-06-14] MEDS ORDERED: THIOTHIXENE 2 MG ORAL ONE ×2 (10:00→10:30)
--- NOTE | 2019-06-14 10:00 | NUR ---
ED Nurse Note: RT AND XRAY AT BEDSIDE.
--- NOTE | 2019-06-14 10:05 | NUR ---
ED Nurse Note: XRAY COMPLETED.
[2019-06-14] MEDS ORDERED: ASPIR 8181 MG ORAL (10:09)
[2019-06-14] MEDS ORDERED: LOTREL 5-20 MG1 EACH ORAL (10:09)
[2019-06-14] MEDS ORDERED: THIOTHIXENE5 M1 PO (10:09)
--- NOTE | 2019-06-14 10:10 | NUR ---
ED Nurse Note: BREATHING TREATMENT COMPLETED
[2019-06-14] MEDS ORDERED: Ipratropium 0.02% Inh Soln 2.5ml UD HHN ONE (10:15)
[2019-06-14] MEDS ORDERED: Albuterol ud Inhalation HHN ONE (10:15)
--- NOTE | 2019-06-14 10:20 | NUR ---
ED Nurse Note: CALLED PHARMACY D/T THIOTIXENE UNAVAIBLE IN [place], PER AIR [employer]SPORTATION PROVIDER WILL DELIVER MEDICATION IN 10 MIN
[2019-06-14 10:25] LABS: EOSINOPHILS % (AUTO) 2.6 % (0.0-3.0); HEMATOCRIT 43.2 % (37.0-47.0); HEMOGLOBIN 13.3 G/DL (12.0-16.0); LYMPHOCYTES % (AUTO) 35.1 % (20.0-45.0); MEAN CORPUSCULAR VOLUME 81 FL (80-99); MONOCYTES % (AUTO) 5.6 % (1.0-10.0); NEUTROPHILS % (AUTO) 55.7 % (45.0-75.0); PLATELET COUNT 348 K/UL (150-450); RED BLOOD COUNT 5.35 M/UL (4.20-5.40); RED CELL DISTRIBUTION WIDTH 13.9 % (11.6-14.8); WHITE BLOOD COUNT 10.5 K/UL (4.8-10.8)
--- NOTE | 2019-06-14 10:29 | Diagnostic Imaging Report ---
Indication: Dyspnea Comparison: 05/24/2019 A single view chest radiograph was obtained. Findings: Mild pulmonary vascular congestion is likely present. The heart is enlarged. Central vessels are prominent. Bones are unremarkable. IMPRESSION: Suspected mild pulmonary vascular congestion. Please correlate clinically
[2019-06-14 10:40] LABS: ANION GAP 9 mmol/L (5-15); BLOOD UREA NITROGEN 13 mg/dL (7-18); CALCIUM 8.2 MG/DL (8.5-10.1); CARBON DIOXIDE 27 MMOL/L (21-32); CHLORIDE 107 MMOL/L (98-107); CREATININE 0.8 MG/DL (0.55-1.30); POTASSIUM 3.8 MMOL/L (3.5-5.1); SODIUM 143 MMOL/L (136-145)
[2019-06-14 10:51] LABS: ALANINE AMINOTRANSFERASE 26 U/L (12-78); ALBUMIN 2.9 G/DL (3.4-5.0); ALBUMIN/GLOBULIN RATIO 0.5 (1.0-2.7); ALKALINE PHOSPHATASE 121 U/L (46-116); ASPARTATE AMINO TRANSFERASE 27 U/L (15-37); BILIRUBIN,TOTAL 0.3 MG/DL (0.2-1.0)
[2019-06-14 11:30] VITALS: BP 118/80
--- NOTE | 2019-06-14 11:30 | NUR ---
ED Nurse Note: PT DC PER ERMD, PT REPORTS DECREASED PAIN, 5/10. PT WAS GIVEN DC AND PRESCRIPTION INSTRUCTIONS;PT VERBALIZED UNDERSTANDING. PT IV SITE AND ID BAND REMOVED. PT LEFT WITH ALL BELONGINGS. VSS.
== END 2019-06-14 11:30 | disposition home or self-care (01) ==
LOC: EDBD 09:57 → EMR 10:21
DX: R07.9 Chest pain, unspecified (principal); I10 Essential (primary) hypertension; E78.5 Hyperlipidemia, unspecified; F31.9 Bipolar disorder, unspecified; E11.9 Type 2 diabetes mellitus without complications; Z88.2 Allergy status to sulfonamides; Z88.8 Allergy status to other drugs, medicaments and biological substances; Z86.73 Personal history of transient ischemic attack (TIA), and cerebral infarction without residual deficits
CPT/HCPCS: 36415; 71045; 80053; 80307; 83880; 84484; 85025; 93005; 94640; 94664; Z7502; 99284

== ENCOUNTER 2019-12-12 01:21 | Emergency (ER) | payer MEDICAID ==
[~2019-12-12] VITALS: Ht 167.6 cm; Wt 136.1 kg
[~2019-12-12 01:21] MED LIST changes: +DOXYCYCLINE MO100 MG ORAL; +LOTREL 5-20 MG1 EACH ORAL; +LOTREL1 CAP PO
--- NOTE | 2019-12-12 01:30 | NUR ---
ED Nurse Note: Pt brought in by RA 26 from home requesting a medication refill, pt VSS, Pt is A&OX4. ERMD at bedside. Denies complaints to
[2019-12-12] MEDS ORDERED: THIOTHIXENE5 M1 PO (01:42)
--- NOTE | 2019-12-12 01:42 | Emergency Room Report ---
History of Present Illness General Chief Complaint: Lower Extremity Injury Source: Patient, Medical Record, EMS Present Illness HPI This a 59-year-old female with history of hypertension. She also has psychiatric history. She presents with chief complaint of shortness of breath. She says she was wheezing 2 days ago but using her inhaler. She felt better now. No nausea no vomiting. No fever chills but no chest pain. She also out of her psychiatric medicine. She been out for 1 day. She is not hearing voices. She not suicidal homicidal. Denies any other complaint. 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 Patient History Past Medical History: see triage record, old chart reviewed, HTN, asthma, psych hx Past Surgical History: none Pertinent Family History: none Social History: Denies: smoking Reviewed Nursing Documentation: PMH: Agreed; PSxH: Agreed Nursing Documentation-PMH Past Medical History: No History, Except For Hx Cardiac Problems: Yes - Per RA 26 Hx Hypertension: Yes - per RA 26 Hx Asthma: Yes Hx Diabetes: No History Of Psychiatric Problem: Yes Hx Cerebrovascular Accident: Yes - per RA 26 Review of Systems Eye: Denies: eye pain, blurred vision ENT: Denies: ear pain, nose congestion, throat swelling Respiratory: Reports: shortness of breath; Denies: cough Cardiovascular: Denies: chest pain, palpitations Gastrointestinal: Denies: abdominal pain, diarrhea, nausea, vomiting Musculoskeletal: Denies: back pain, joint pain Skin: Denies: rash Neurological: Denies: headache, numbness Endocrine: Denies: increased thirst, increased urine Hematologic/Lymphatic: Denies: easy bruising All Other Systems: negative except mentioned in HPI Physical Exam Vital Signs Date Time Temp Pulse Resp B/P (MAP) Pulse Ox O2 Delivery O2 Flow Rate FiO2 12/12/19 01:26 89 18 143/71 (95) 98 Room Air Vitals normal Sp02 EP Interpretation: reviewed, normal General Appearance: well appearing, no apparent distress, alert, obese Head: normocephalic, atraumatic Eyes: bilateral eye PERRL, bilateral eye EOMI ENT: hearing grossly normal, normal pharynx Neck: full range of motion, supple, no meningismus Respiratory: chest non-tender, lungs clear, normal breath sounds Cardiovascular #1: regular rate, rhythm, no murmur Gastrointestinal: normal bowel sounds, non tender, no mass, no organomegaly, no bruit, non-distended Musculoskeletal: back normal, normal range of motion, gait/station normal Psychiatric: mood/affect normal Medical Decision Making Diagnostic Impression: Primary Impression: Encounter for medication refill Additional Impression: Asthma Qualified Codes: J45.20 - Mild intermittent asthma, uncomplicated ER Course Patient here for refill on her psychiatric medicine. She is also states he had wheezing yesterday but it resolved. Will discharge home. Last Vital Signs Date Time Temp Pulse Resp B/P (MAP) Pulse Ox O2 Delivery O2 Flow Rate FiO2 12/12/19 01:26 89 18 143/71 (95) 98 Room Air Status: unchanged Disposition: HOME, SELF-CARE Condition: Stable Scripts Thiothixene (THIOTHIXENE) 5 Mg Capsule 5 MG PO QHS, #90 CAP Prov: Memo Harp MD 12/12/19 Additional Instructions: Follow-up with your doctor in a week as needed. Continue with your inhaler as needed. Return if symptoms worsen. Memo Harp MD December 12, 2019 01:42
[2019-12-12 01:50] VITALS: BP 143/71
== END 2019-12-12 01:50 | disposition home or self-care (01) ==
LOC: EDBD 01:21 → EDUNIT# 01:21 → EMR 01:31
DX: J45.20 Mild intermittent asthma, uncomplicated (principal); E66.9 Obesity, unspecified; I10 Essential (primary) hypertension; M06.9 Rheumatoid arthritis, unspecified; Z86.73 Personal history of transient ischemic attack (TIA), and cerebral infarction without residual deficits; Z88.2 Allergy status to sulfonamides; Z88.8 Allergy status to other drugs, medicaments and biological substances
CPT/HCPCS: 99283

== ENCOUNTER 2020-04-23 22:20 | Emergency (ER) | payer MEDICAID ==
[~2020-04-23] VITALS: Ht 167.6 cm; Wt 122.5 kg
[2020-04-23 22:35] VITALS: BP 135/84
[2020-04-23 23:03] LABS: BASOPHILS % (AUTO) 1.2 % (0.0-2.0); EOSINOPHILS % (AUTO) 2.3 % (0.0-3.0); HEMOGLOBIN 13.6 G/DL (12.0-16.0); LYMPHOCYTES % (AUTO) 35.5 % (20.0-45.0); MEAN CORPUSCULAR VOLUME 82 FL (80-99); MONOCYTES % (AUTO) 6.3 % (1.0-10.0); NEUTROPHILS % (AUTO) 54.7 % (45.0-75.0); PLATELET COUNT 349 K/UL (150-450); RED BLOOD COUNT 5.34 M/UL (4.20-5.40); RED CELL DISTRIBUTION WIDTH 14.9 % (11.6-14.8); WHITE BLOOD COUNT 11.2 K/UL (4.8-10.8)
[2020-04-23 23:14] LABS: ANION GAP 8 mmol/L (5-15); BLOOD UREA NITROGEN 14 mg/dL (7-18); CALCIUM 8.5 MG/DL (8.5-10.1); CARBON DIOXIDE 25 MMOL/L (21-32); CHLORIDE 110 MMOL/L (98-107); POTASSIUM 3.3 MMOL/L (3.5-5.1); SODIUM 143 MMOL/L (136-145)
[2020-04-23 23:25] LABS: ALANINE AMINOTRANSFERASE 19 U/L (12-78); ALBUMIN 2.8 G/DL (3.4-5.0); ALBUMIN/GLOBULIN RATIO 0.6 (1.0-2.7); ALKALINE PHOSPHATASE 120 U/L (46-116); ASPARTATE AMINO TRANSFERASE 23 U/L (15-37); BILIRUBIN,TOTAL 0.2 MG/DL (0.2-1.0)
[2020-04-23 23:33] LABS: APPEARANCE,URINE SLIGHTLY CLOUDY; BILIRUBIN, URINE NEGATIVE (NEGATIVE); GLUCOSE, URINE (UA) NEGATIVE (NEGATIVE); KETONES,URINE NEGATIVE (NEGATIVE); LEUKOCYTE ESTERASE ,URINE 1+ (NEGATIVE); NITRITE,URINE NEGATIVE (NEGATIVE); PH,URINE 6 (4.5-8.0); PROTEIN,URINE 1+ (NEGATIVE); UROBILINOGEN,URINE 1 MG/DL (0.0-1.0)
[2020-04-23 23:35] LABS: COLOR,URINE YELLOW
--- NOTE | 2020-04-23 23:50 | Diagnostic Imaging Report ---
INDICATION: Shortness of breath. COMPARISON: 08/12/2019. Findings/impression: Limited study secondary to patient body habitus. Single limited portable frontal view demonstrates no clinically significant pneumothorax or right pleural effusion. Left costophrenic sulcus is not well visualized. The heart appears enlarged however this may be accentuated by the limited portable technique, stable finding. Possible airspace consolidation identified in the right lower lobe. Retrocardiac region is not well visualized. Osseous structures are within normal limits.
[2020-04-24] MEDS ORDERED: Albuterol/Ipratropium 3ml neb HHN ONE (00:45)
[2020-04-24] MEDS ORDERED: ALBUTEROL SULF8.5 G1 INH (01:10)
[2020-04-24] MEDS ORDERED: LEVOFLOXACIN750 MG ORAL (01:10)
[2020-04-24 01:15] VITALS: BP 129/85
--- NOTE | 2020-04-24 02:12 | Emergency Room Report ---
History of Present Illness General Chief Complaint: Chest Pain Source: Patient, EMS Present Illness HPI 60-year-old female presents the ED for evaluation. Brought in by EMS from home. Per EMS patient was having abdominal pain. Patient denies that. States she was having chest pain and shortness of breath today shortness of breath today. Denies any symptoms at this time. States she is been having a cough as well. Dry. Denies fevers or chills. Denies chest pain. States she has been compliant with her medications. No other aggravating relieving factors. 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 Patient History Past Medical History: HTN, asthma, psych hx Past Surgical History: none Pertinent Family History: none Social History: Denies: smoking, alcohol use, drug use Now: No Immunizations: UTD Reviewed Nursing Documentation: PMH: Agreed; PSxH: Agreed Nursing Documentation-PMH Hx Cardiac Problems: Yes - Per RA 26 Hx Hypertension: Yes - per RA 26 Hx Asthma: Yes Hx Diabetes: No Hx Cerebrovascular Accident: Yes - per RA 26 Review of Systems All Other Systems: negative except mentioned in HPI Physical Exam Vital Signs Date Time Temp Pulse Resp B/P (MAP) Pulse Ox O2 Delivery O2 Flow Rate FiO2 04/23/20 22:19 90 16 137/89 (105) 98 Room Air 04/23/20 22:35 98.5 04/24/20 00:48 21 Sp02 EP Interpretation: reviewed, normal General Appearance: no apparent distress, alert, GCS 15, non-toxic, obese Head: normocephalic, atraumatic Eyes: bilateral eye normal inspection, bilateral eye PERRL ENT: hearing grossly normal, normal pharynx, no angioedema, normal voice Neck: full range of motion, supple/symm/no masses Respiratory: chest non-tender, normal breath sounds, speaking full sentences, wheezing Cardiovascular #1: regular rate, rhythm, no edema Cardiovascular #2: 2+ carotid (R), 2+ carotid (L), 2+ radial (R), 2+ radial (L), 2+ dorsalis pedis (R), 2+ dorsalis pedis (L) Gastrointestinal: normal bowel sounds, non tender, soft, non-distended, no guarding, no rebound Rectal: deferred Genitourinary: normal inspection, no CVA tenderness Musculoskeletal: back normal, normal range of motion, gait/station normal, non- tender Neurologic: alert, motor strength/tone normal, oriented x3, sensory intact, responsive, speech normal Psychiatric: judgement/insight normal, memory normal, mood/affect normal, no suicidal/homicidal ideation Reflexes: 3+ bicep (R), 3+ bicep (L), 3+ tricep (R), 3+ tricep (L), 3+ knee (R), 3+ knee (L) Lymphatic: no adenopathy Medical Decision Making Diagnostic Impression: Primary Impression: UTI (urinary tract infection) Qualified Codes: N39.0 - Urinary tract infection, site not specified Additional Impression: Atypical pneumonia ER Course Hospital Course 60 yo F presents with SOB, cough. from home Differential diagnoses include: URI, bronchitis, asthma/COPD, pneumonia Clinical course Patient placed on stretcher. After initial history, physical exam reveals an elderly female in no acute distress. Bilateral TM unremarkable. No pharyngeal erythema. No tonsillar exudates. No lymphadenopathy. mild wheezing noted I ordered labs, IV fluids, EKG, chest x-ray. Labs reviewed-no leukocytosis noted, hemoglobin/hematocrit stable, electrolytes okay, trop negative, BNP ok, UA positive EKG - NSR, no acute ischemic changes interpreted by me Chest x-ray shows possible retrocardiac consolidation COVID swab negative. Given breathing treatment. States she feels better. I discussed findings with patient. Will discharge home with antibiotics, and inhaler. Safe for discharge with close outpatient follow-up. States she has a PMD Diagnosis -atypical pneumonia , UTI Stable and discharged home with prescriptions for albuterol, Levaquin. Instructed to followup with PMD. Return to ED if symptoms recur or worsen Laboratory Tests Test 04/23/20 22:50 04/23/20 23:18 White Blood Count 11.2 K/UL (4.8-10.8) H Red Blood Count 5.34 M/UL (4.20-5.40) Hemoglobin 13.6 G/DL (12.0-16.0) Hematocrit 44.0 % (37.0-47.0) Mean Corpuscular Volume 82 FL (80-99) Mean Corpuscular Hemoglobin 25.4 PG (27.0-31.0) L Mean Corpuscular Hemoglobin Concent 30.8 G/DL (32.0-36.0) L Red Cell Distribution Width 14.9 % (11.6-14.8) H Platelet Count 349 K/UL (150-450) Mean Platelet Volume 7.9 FL (6.5-10.1) Neutrophils (%) (Auto) 54.7 % (45.0-75.0) Lymphocytes (%) (Auto) 35.5 % (20.0-45.0) Monocytes (%) (Auto) 6.3 % (1.0-10.0) Eosinophils (%) (Auto) 2.3 % (0.0-3.0) Basophils (%) (Auto) 1.2 % (0.0-2.0) Sodium Level 143 MMOL/L (136-145) Potassium Level 3.3 MMOL/L (3.5-5.1) L Chloride Level 110 MMOL/L (98-107) H Carbon Dioxide Level 25 MMOL/L (21-32) Anion Gap 8 mmol/L (5-15) Blood Urea Nitrogen 14 mg/dL (7-18) Creatinine 1.0 MG/DL (0.55-1.30) Estimat Glomerular Filtration Rate > 60 mL/min (>60) Glucose Level 97 MG/DL (74-106) Calcium Level 8.5 MG/DL (8.5-10.1) Total Bilirubin 0.2 MG/DL (0.2-1.0) Aspartate Amino Transf (AST/SGOT) 23 U/L (15-37) Alanine Aminotransferase (ALT/SGPT) 19 U/L (12-78) Alkaline Phosphatase 120 U/L (46-116) H Troponin I 0.000 ng/mL (0.000-0.056) Pro-B-Type Natriuretic Peptide 43 pg/mL (0-125) Total Protein 7.8 G/DL (6.4-8.2) Albumin 2.8 G/DL (3.4-5.0) L Globulin 5.0 g/dL Albumin/Globulin Ratio 0.6 (1.0-2.7) L Urine Color Yellow Urine Appearance Slightly cloudy Urine pH 6 (4.5-8.0) Urine Specific [place] 1.020 (1.005-1.035) Urine Protein 1+ (NEGATIVE) H Urine Glucose (UA) Negative (NEGATIVE) Urine Ketones Negative (NEGATIVE) Urine Blood 1+ (NEGATIVE) H Urine Nitrite Negative (NEGATIVE) Urine Bilirubin Negative (NEGATIVE) Urine Urobilinogen 1 MG/DL (0.0-1.0) H Urine Leukocyte Esterase 1+ (NEGATIVE) H Urine RBC 2-4 /HPF (0 - 2) H Urine WBC 2-4 /HPF (0 - 2) Urine Squamous Epithelial Cells Many /LPF (NONE/OCC) H Urine Bacteria Many /HPF (NONE) H EKG Diagnostic Results Rate: normal Rhythm: NSR ST Segments: no acute changes ASA given to the pt in ED: No Rhythm Strip Diag. Results EP Interpretation: yes Rhythm: NSR, no PVC's, no ectopy Chest X-Ray Diagnostic Results Chest X-Ray Diagnostic Results : Chest X-Ray Ordered: Yes # of Views/Limited/Complete: 1 View Indication: Shortness of Breath EP Interpretation: Yes Interpretation: no effusion, no pneumothorax, other - retrocardiac consolidation Impression: Other - ?PNA Electronically Signed by: Electronically signed by Keshawn Schulz MD Last Vital Signs Date Time Temp Pulse Resp B/P (MAP) Pulse Ox O2 Delivery O2 Flow Rate FiO2 04/24/20 01:15 98.5 90 18 129/85 100 Room Air 21 Status: improved Disposition: HOME, SELF-CARE Condition: Stable Scripts Albuterol Sulfate* (Albuterol Sulfate Hfa*) 8.5 Gm Hfa.aer.ad 2 PUFF INH Q4H, #1 INH Prov: Keshawn Schulz MD 04/24/20 Levofloxacin* (LEVOFLOXACIN*) 750 Mg Tablet 750 MG ORAL DAILY for 5 Days, TAB Prov: Keshawn Schulz MD 04/24/20 Patient Instructions: Community-Acquired Pneumonia, Adult, [id number] Keshawn Schulz MD Apr 24, 2020 02:12
== END 2020-04-24 01:15 | disposition home or self-care (01) ==
LOC: EDBD 22:20 → EMR 22:37
DX: J18.9 Pneumonia, unspecified organism (principal); N39.0 Urinary tract infection, site not specified; E66.9 Obesity, unspecified; Z86.73 Personal history of transient ischemic attack (TIA), and cerebral infarction without residual deficits; I10 Essential (primary) hypertension; Z88.2 Allergy status to sulfonamides; Z88.8 Allergy status to other drugs, medicaments and biological substances; R07.9 Chest pain, unspecified; Z68.41 Body mass index [BMI] 40.0-44.9, adult
CPT/HCPCS: 36415; 71045; 80053; 81003; 83880; 84484; 85025; 87086; 93005; 94640; U0002; Z7502; 99284; J7620

== ENCOUNTER 2020-06-16 23:49 | Emergency (ER) | payer MEDICAID ==
[~2020-06-16] VITALS: Ht 165.1 cm; Wt 124.7 kg
[~2020-06-16 23:49] MED LIST changes: +ALBUTEROL SULF8.5 G1 INH; +LEVOFLOXACIN750 MG ORAL
[2020-06-17] VITALS: BP 157/89
--- NOTE | 2020-06-17 00:11 | Emergency Room Report ---
History of Present Illness General Chief Complaint: Chest Pain Source: Patient Present Illness HPI Patient is a 60-year-old female presents for increased chest discomfort. Prior history of bipolar disorder. States she did run out of her medications for blood pressure as well as for bipolar. Normally takes Navane as well as amlodipine. Denies any fever. 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 COVID-19 Screening: Negative COVID-19 COVID-19 Testing Source: unk Patient History Last Menstrual Period: n/a Nursing Documentation-[facility] Past Medical History: No History, Except For Hx Cardiac Problems: Yes Hx Hypertension: Yes Hx Asthma: Yes Hx Diabetes: No Hx Cerebrovascular Accident: Yes Review of Systems All Other Systems: negative except mentioned in HPI Physical Exam Vital Signs Date Time Temp Pulse Resp B/P (MAP) Pulse Ox O2 Delivery O2 Flow Rate FiO2 06/16/20 23:51 96.8 76 16 182/98 (126) 96 Room Air Sp02 EP Interpretation: reviewed, normal General Appearance: normal inspection, well appearing, no apparent distress, alert, GCS 15, obese Head: atraumatic ENT: normal ENT inspection, hearing grossly normal, normal voice Neck: normal inspection, full range of motion, supple, no bony tend Respiratory: normal inspection, lungs clear, normal breath sounds, no respiratory distress, no retraction, no wheezing Cardiovascular #1: regular rate, rhythm, no edema Gastrointestinal: normal inspection, normal bowel sounds, non tender, soft, no guarding, no hernia Genitourinary: no CVA tenderness Musculoskeletal: normal inspection, back normal, normal range of motion Neurologic: alert, motor strength/tone normal, 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 Differential diagnosis includes is not limited to allergic reaction, myocardial infarction, hypertensive crisis among others. Because of complexity of patient's case laboratory tests and imaging studies were ordered. Patient's laboratory testing was unremarkable. She was given medications for blood pressure with improvement. Patient given refill of medications that she previously had taken in does not appear to have any evidence of acute myocardial injury at this time. She is advised to follow-up with cardiology for recheck. This medical record is generated with [employer] receptionist nurse software. There may be some receptionist nurse discrepancies related to use of this software Labs Test 06/17/20 00:45 06/17/20 00:50 White Blood Count 11.2 K/UL (4.8-10.8) Red Blood Count 5.41 M/UL (4.20-5.40) Hemoglobin 14.0 G/DL (12.0-16.0) Hematocrit 44.2 % (37.0-47.0) Mean Corpuscular Volume 82 FL (80-99) Mean Corpuscular Hemoglobin 25.8 PG (27.0-31.0) Mean Corpuscular Hemoglobin Concent 31.7 G/DL (32.0-36.0) Red Cell Distribution Width 15.1 % (11.6-14.8) Platelet Count 303 K/UL (150-450) Mean Platelet Volume 7.8 FL (6.5-10.1) Neutrophils (%) (Auto) 61.0 % (45.0-75.0) Lymphocytes (%) (Auto) 28.6 % (20.0-45.0) Monocytes (%) (Auto) 6.0 % (1.0-10.0) Eosinophils (%) (Auto) 3.2 % (0.0-3.0) Basophils (%) (Auto) 1.1 % (0.0-2.0) D-Dimer 0.66 mg/L FEU (0.00-0.49) Sodium Level 142 MMOL/L (136-145) Potassium Level 3.6 MMOL/L (3.5-5.1) Chloride Level 105 MMOL/L (98-107) Carbon Dioxide Level 31 MMOL/L (21-32) Anion Gap 6 mmol/L (5-15) Blood Urea Nitrogen 17 mg/dL (7-18) Creatinine 1.1 MG/DL (0.55-1.30) Estimat Glomerular Filtration Rate > 60 mL/min (>60) Glucose Level 99 MG/DL (74-106) Calcium Level 8.6 MG/DL (8.5-10.1) Total Bilirubin 0.2 MG/DL (0.2-1.0) Aspartate Amino Transf (AST/SGOT) 23 U/L (15-37) Alanine Aminotransferase (ALT/SGPT) 26 U/L (12-78) Alkaline Phosphatase 126 U/L (46-116) Troponin I 0.000 ng/mL (0.000-0.056) C-Reactive Protein, Quantitative 4.4 mg/dL (0.00-0.90) Pro-B-Type Natriuretic Peptide 40 pg/mL (0-125) Total Protein 8.7 G/DL (6.4-8.2) Albumin 2.9 G/DL (3.4-5.0) Globulin 5.8 g/dL Albumin/Globulin Ratio 0.5 (1.0-2.7) Thyroid Stimulating Hormone (TSH) 0.883 uiU/mL (0.358-3.740) Urine Color Pale yellow Urine Appearance Clear Urine pH 6 (4.5-8.0) Urine Specific [place] 1.020 (1.005-1.035) Urine Protein 1+ (NEGATIVE) Urine Glucose (UA) Negative (NEGATIVE) Urine Ketones Negative (NEGATIVE) Urine Blood 2+ (NEGATIVE) Urine Nitrite Negative (NEGATIVE) Urine Bilirubin Negative (NEGATIVE) Urine Urobilinogen Normal MG/DL (0.0-1.0) Urine Leukocyte Esterase Negative (NEGATIVE) Urine RBC 5-10 /HPF (0 - 2) Urine WBC 0-2 /HPF (0 - 2) Urine Squamous Epithelial Cells Few /LPF (NONE/OCC) Urine Bacteria Few /HPF (NONE) EKG Diagnostic Results Rate: normal Rhythm: NSR ST Segments: no acute changes Last Vital Signs Date Time Temp Pulse Resp B/P (MAP) Pulse Ox O2 Delivery O2 Flow Rate FiO2 06/16/20 23:51 96.8 76 16 182/98 (126) 96 Room Air Status: improved Disposition: HOME, SELF-CARE Condition: Stable Scripts Amlodipine/Benazepril (Amlodipine-Benazepril 5-20 mg) 1 Each Capsule 1 CAP PO DAILY for Hypertension, #30 CAP Prov: Rich Donnelly MD 06/17/20 Thiothixene (THIOTHIXENE) 5 Mg Capsule 5 MG PO QHS, #90 CAP Prov: Rich Donnelly MD 06/17/20 Referrals: [facility],REFERRING (PCP) Rich Donnelly MD Jun 17, 2020 00:11
--- NOTE | 2020-06-17 00:49 | Diagnostic Imaging Report ---
EXAM: XR Chest, 1 View CLINICAL HISTORY: SOB TECHNIQUE: Frontal view of the chest. COMPARISON: 04/23/2020 FINDINGS: Limitations: Study limited due to patient body habitus and portable technique. Lungs: Unremarkable. No consolidation. Pleural space: Unremarkable. No pneumothorax. Heart: Unremarkable. No cardiomegaly. Mediastinum: Unremarkable. Bones/joints: No acute abnormality IMPRESSION: 1. Study limited due to patient body habitus and portable technique. 2. No acute cardiopulmonary disease. 3. If there is continued concern consider frontal and lateral chest radiographs or CT.
[2020-06-17] MEDS ORDERED: Benazepril 10mg tab ONE (00:59)
[2020-06-17 01:03] LABS: BASOPHILS % (AUTO) 1.1 % (0.0-2.0); EOSINOPHILS % (AUTO) 3.2 % (0.0-3.0); HEMATOCRIT 44.2 % (37.0-47.0); LYMPHOCYTES % (AUTO) 28.6 % (20.0-45.0); MEAN CORPUSCULAR VOLUME 82 FL (80-99); PLATELET COUNT 303 K/UL (150-450); RED BLOOD COUNT 5.41 M/UL (4.20-5.40); RED CELL DISTRIBUTION WIDTH 15.1 % (11.6-14.8); WHITE BLOOD COUNT 11.2 K/UL (4.8-10.8)
[2020-06-17 01:19] LABS: ANION GAP 6 mmol/L (5-15); BLOOD UREA NITROGEN 17 mg/dL (7-18); CALCIUM 8.6 MG/DL (8.5-10.1); CARBON DIOXIDE 31 MMOL/L (21-32); CHLORIDE 105 MMOL/L (98-107); CREATININE 1.1 MG/DL (0.55-1.30); POTASSIUM 3.6 MMOL/L (3.5-5.1); SODIUM 142 MMOL/L (136-145)
[2020-06-17 01:32] LABS: ALANINE AMINOTRANSFERASE 26 U/L (12-78); ALBUMIN 2.9 G/DL (3.4-5.0); ALBUMIN/GLOBULIN RATIO 0.5 (1.0-2.7); ALKALINE PHOSPHATASE 126 U/L (46-116); ASPARTATE AMINO TRANSFERASE 23 U/L (15-37); BILIRUBIN,TOTAL 0.2 MG/DL (0.2-1.0)
[2020-06-17 01:39] LABS: APPEARANCE,URINE CLEAR; BILIRUBIN, URINE NEGATIVE (NEGATIVE); COLOR,URINE PALE YELLOW; GLUCOSE, URINE (UA) NEGATIVE (NEGATIVE); KETONES,URINE NEGATIVE (NEGATIVE); LEUKOCYTE ESTERASE ,URINE NEGATIVE (NEGATIVE); NITRITE,URINE NEGATIVE (NEGATIVE); PH,URINE 6 (4.5-8.0); PROTEIN,URINE 1+ (NEGATIVE); UROBILINOGEN,URINE NORMAL MG/DL (0.0-1.0)
[2020-06-17] MEDS ORDERED: THIOTHIXENE5 M1 PO (01:42)
[2020-06-17] MEDS ORDERED: LOTREL1 CAP PO (01:45)
[2020-06-17 02:00] VITALS: BP 137/81
[2020-06-17] MEDS ORDERED: Benazepril 10mg tab ORAL SCH (09:00)
--- NOTE | 2020-06-20 14:49 | Cardiology Report ---
APPROVED REPORT EKG Measurement Heart [id number] <Conclusion> Normal sinus rhythm Nonspecific T wave abnormality Abnormal ECG
== END 2020-06-17 02:00 | disposition home or self-care (01) ==
LOC: EDBD 23:49 → EMR 23:59
DX: R07.9 Chest pain, unspecified (principal); I10 Essential (primary) hypertension; E66.9 Obesity, unspecified; Z86.73 Personal history of transient ischemic attack (TIA), and cerebral infarction without residual deficits; Z88.2 Allergy status to sulfonamides; Z88.8 Allergy status to other drugs, medicaments and biological substances; F31.9 Bipolar disorder, unspecified
CPT/HCPCS: 36415; 71045; 80053; 81001; 83880; 84443; 84484; 85025; 85379; 86140; 93005; Z7502; 99284